=== PATIENT | female | born 1995 ===

== ENCOUNTER 2021-01-18 10:04 | Outpatient (REF) | payer BC, SELFPAY ==
[2021-01-18 13:06] LABS: Red Cell Distribution Width 15.6 % (11.0-16.0)
[2021-01-18 13:08] LABS: Hematocrit 36.1 % (37-47); Hemoglobin 10.8 g/dl (12.0-16.0); Mean Corpuscular HGB Conc 29.9 g/dl (31.0-35.0); Mean Corpuscular Hemoglobin 23.7 pg (27.0-33.0); Mean Corpuscular Volume 79.3 fL (80-98); PLT CLUMP 1; Red Blood Count 4.55 X10*6/uL (4.20-5.50)
[2021-01-18 13:24] LABS: PLT ABN DIST 1
[2021-01-18 13:36] LABS: HCG Quantitative < 2 mIU/mL; Thyroid Stimulating Hormone 2.44 uIU/mL (0.32-4.0)
[2021-01-18 13:43] LABS: White Blood Count 5.8 X10*3/uL (4.8-10.8)
[2021-01-19 02:42] LABS: CT PCR NOT DETECTED (Not Detect.); NG PCR NOT DETECTED (Not Detect.)
[2021-01-19 08:40] LABS: BV Int Neg Control Negative (Negative); BV Int Pos Control Positive (Positive)
[2021-01-21 19:05] LABS: Prolactin 9.9 ng/mL
[2021-01-21 19:46] LABS: DHEA Sulfate 369 mcg/dL (18-391)
[2021-01-26 14:01] LABS: Testosterone, Free 7.3 pg/mL (0.1-6.4); Testosterone, Total 33 ng/dL (2-45)
== END 2021-01-18 10:05 | disposition home or self-care (01) ==
LOC: HO.LAB 10:04
PROVIDERS: PCP Physician Assistant; Visit Provider Advanced Practice Midwife
DX: Z01.411 Encounter for gynecological examination (general) (routine) with abnormal findings (principal); Z11.3 Encounter for screening for infections with a predominantly sexual mode of transmission; N92.6 Irregular menstruation, unspecified; Z20.2 Contact with and (suspected) exposure to infections with a predominantly sexual mode of transmission; R23.4 Changes in skin texture
CPT/HCPCS: 36415; 82627; 83498; 84146; 84402; 84403; 84443; 84702; 85027; 87480; 87491; 87510; 87591; 87660; 88142

== ENCOUNTER 2021-02-08 11:28 | Outpatient (REF) | payer BC, OTHER, SELFPAY ==
--- NOTE | ~2021-02-08 | US_ITS ---
EXAMINATION:US pelvic and transvaginal CLINICAL INFORMATION: Reason for Exam irregular menses COMPARISON: No priors available. LMP: 12/26/2020 FINDINGS: UTERUS: The uterus is anteverted. Size: 7.9 x 2.6 x 3.1 cm. Uterine mass: There is no uterine mass. Cervix: Grossly unremarkable. Endometrium: No ultrasound evidence of endometrial lesion. endometrial thickness measures 1.1 cm ADNEXA: Normal Right ovary: Normal in size. Exophytic cyst measures 1.5 x 1.3 x 1.4 cm probably a follicle. Left ovary: Normal in size. Doppler exam: Normal Doppler flow identified in both ovaries. FREE FLUID: Trace amount of free fluid. OTHER FINDINGS: None US/US pelvic and transvaginal IMPRESSION: 1. Physiologically hypertrophic endometrium 1.1 cm. Cystic structure right ovary probably dominant follicle 1.5 cm. Ultrasound otherwise normal.
== END 2021-02-08 11:29 | disposition home or self-care (01) ==
LOC: HO.US 11:28
PROVIDERS: Visit Provider Advanced Practice Midwife
DX: R23.4 Changes in skin texture (principal); Z20.2 Contact with and (suspected) exposure to infections with a predominantly sexual mode of transmission
CPT/HCPCS: 76830; 76856

== ENCOUNTER → 2021-02-14 11:47 | Outpatient (BNVA) | payer BC, SELFPAY | PROVIDERS: Visit Provider Advanced Practice Midwife ==

== ENCOUNTER → 2021-06-07 15:46 | Outpatient (BNVA) | payer BC, SELFPAY | PROVIDERS: Visit Provider Advanced Practice Midwife ==

== ENCOUNTER 2022-02-08 10:19 | Outpatient (REF) | payer BC, SELFPAY ==
[2022-02-08 13:51] LABS: Hematocrit 38.6 % (37.0-47.0); Hemoglobin 12.1 g/dl (12.0-16.0); Mean Corpuscular HGB Conc 31.3 g/dl (31.0-35.0); Mean Corpuscular Hemoglobin 25.1 pg (27.0-33.0); Mean Corpuscular Volume 79.9 fL (80.0-98.0); Red Blood Count 4.83 X10*6/uL (4.20-5.50); Red Cell Distribution Width 14.6 % (11.0-16.0)
[2022-02-08 14:12] LABS: Platelet Count 149 X10*3/uL (160-400)
[2022-02-08 14:18] LABS: Alanine Aminotransferase 242 U/L (0-31); Albumin Level 4.4 g/dL (3.5-5.0); Alkaline Phosphatase 111 U/L (39-117); Anion Gap 13 (12-20); Aspartate Amino Transferase 105 U/L (5-31); Bilirubin Total 0.5 mg/dL (0.0-1.0); Blood Urea Nitrogen 13 mg/dL (9-16); Calcium 9.7 mg/dL (8.4-10.2); Carbon Dioxide 26 mmol/L (22-29); Chloride 102 mmol/L (96-108); Cholesterol 159 mg/dL; Estimated Glomerular Filt Rate > 60; Glucose Fasting 105 mg/dL (60-99); HDL Cholesterol 38 mg/dL; LDL Cholesterol Calculated 107 mg/dl; Potassium 4.1 mmol/L (3.3-5.1); Sodium 137 mmol/L (135-145); Triglycerides 74 mg/dL
[2022-02-08 14:37] LABS: TSH reflex Free T4 1.25 uIU/mL (0.32-4.0)
== END 2022-02-08 10:20 | disposition home or self-care (01) ==
LOC: HO.WFDLDS 10:19
PROVIDERS: Visit Provider Hospitalist
DX: Z00.00 Encounter for general adult medical examination without abnormal findings (principal); D64.9 Anemia, unspecified; E66.9 Obesity, unspecified
CPT/HCPCS: 36415; 80053; 80061; 84443; 85027

== ENCOUNTER 2022-02-16 13:15 | Outpatient (REF) | payer BC, MEDICAID, SELFPAY ==
--- NOTE | ~2022-02-16 | US_ITS ---
EXAMINATION: US DIAGNOSTIC ULTRASOUND BREAST, LEFT CLINICAL INFORMATION: 26-year-old with palpable mass upper inner quadrant left breast for approximately 3 months. No prior breast imaging. TC score 18.8%. COMPARISON: None. TECHNIQUE: Ultrasound left breast is targeted to the upper inner quadrant. Patient is able to point to area of concern at time of imaging. Grayscale imaging and color Doppler are performed without and with harmonics. FINDINGS: There is a macrolobulated heterogeneous mass at site of palpable concern 10:00 position 5 cm from nipple measuring 2.8 x 1.8 x 2.2 cm. Statistically, the lesion is likely a fibroadenoma. Ultrasound guided biopsies recommended for confirmation. Results are discussed with the patient at time of visit. Results and recommendation called to PCP office biomedical scientist (Leonard) on 02/16/2022. US/US breast LT limited IMPRESSION: -2.8 cm solid mass upper inner left breast corresponding to palpable concern, likely fibroadenoma. ASSESSMENT: BI-RADS 4: Suspicious (subcategory 4A: Low suspicion for malignancy) RECOMMENDATION: Ultrasound-guided core biopsy left breast mass. This patient's information was entered into a reminder system with a target due date for their next mammogram.
== END 2022-02-16 13:16 | disposition home or self-care (01) ==
LOC: HO.MAMMO 13:15
PROVIDERS: PCP Hospitalist; Visit Provider Hospitalist
DX: N63.20 Unspecified lump in the left breast, unspecified quadrant (principal); Z80.3 Family history of malignant neoplasm of breast
CPT/HCPCS: 76642

== ENCOUNTER 2022-02-22 09:05 | Outpatient (REF) | payer BC, MEDICAID, SELFPAY ==
--- NOTE | ~2022-02-22 | US_ITS ---
PROCEDURE: US GUIDED BREAST BIOPSY, LEFT CLINICAL INFORMATION: Heterogeneous hypoechoic mass 10:00 position left breast 5 cm from the nipple. COMPARISON: February 16, 2022 PROCEDURAL DETAILS: The details of the procedure, as well as the risks, benefits, and alternatives to the procedure were explained to the patient in detail and all of her questions were answered, after which written informed consent was obtained. Site and side were confirmed. Prior to the procedure, sonography revealed somewhat lobular circumscribed hypoechoic heterogeneous left breast mass. A time-out was performed, the lesion intended for biopsy was targeted, and the skin of the left breast was then prepped and draped in the usual sterile fashion. Using sonographic guidance, sterile technique, and 1% lidocaine without epinephrine for local anesthesia, multiple automated core biopsies were obtained through the targeted area with a 14G spring loaded Achieve core biopsy device. There was real-time confirmation of appropriate needle passage. Sampling was documented. At the completion of tissue sampling, a single open coil-shaped metallic clip was deposited at the biopsy site. There was no evidence of immediate complication. SPECIMEN: An appropriate sample was obtained. The patient tolerated the procedure well and, after assuring adequate hemostasis, was discharged in good condition after reviewing postbiopsy breast care instructions. Final pathology results are pending. US/US breast ndl core biopsy LT IMPRESSION: 1. No immediate complication from ultrasound-guided percutaneous biopsy left breast. 2. Ultrasound was used to localize and guide marker clip placement. 3. Final pathology results are pending. A separate report with final recommendations will be issued once these results are made available.
[2022-02-22] MEDS: Lidocaine HCl 1 % 20 ML VIAL 10 ML SUBCUT (10:15)
== END 2022-02-22 09:06 | disposition home or self-care (01) ==
LOC: HO.MAMMO 09:05
PROVIDERS: PCP Hospitalist; Visit Provider Surgery
DX: N63.22 Unspecified lump in the left breast, upper inner quadrant (principal)
CPT/HCPCS: 19083; 88305; A4648

== ENCOUNTER 2023-06-27 10:04 | Outpatient (AMB) | payer BC, MEDICAID, SELFPAY ==
[2023-06-27 10:10] VITALS: BP 108/66; PULSE 81; RESP 13; TEMP 36.4; O2SAT 98; BMI 38.0
--- NOTE | 2023-06-27 10:10 | MHC.PC.OV ---
Vital Signs 06/27/23 10:10 Height 5 ft 4 in Weight 221 lb 8 oz BMI 38.0 BP 108/66 Blood Pressure Location Rt brachial Position Sitting Respiration 13 Pulse 81 Pulse Source Pulse Oximeter Temp 97.6 F Temp Source Temporal Artery Scan Pulse Oximetry (%) 98 Oxygen Delivery Method Room Air Intake Visit Reasons: PARAM discuss medical concerns [facility] Intake Note: Patient states that she would like a referral to merchandise planning manager due to random reactions to food. Electronic Typesetting Machine Operator Required: No Accompanied by: Self / Same As Patient Allergies carrot Adverse Reaction (Intermediate, Verified 06/27/23 10:23) Itching peaches Allergy (Unknown, Uncoded 06/27/23 10:23) Unknown Jackfruit Adverse Reaction (Intermediate, Uncoded 06/27/23 10:23) Anaphylaxis Sugarsnap Peas Adverse Reaction (Intermediate, Uncoded 06/27/23 10:23) Itching Medication List - Last Reconciled 06/27/23 by lAma Dalton CNP cyanocobalamin (vitamin B-12) 1,000 mcg PO DAILY lysine 975 mg PO DAILY magnesium glycinate 100 mg PO DAILY Tobacco use date assessed: 06/27/23 Dental Screening Dental Screen Date: 06/27/23 Did you have a dental visit in the last 12 months?: Yes Did you have a dental problem in the last 6 months where you did not have access to dental care?: No Was dental information given to patient?: Patient has dentist HPI HPI Comments History of Present Illness Details 28-year-old female presents for transfer of care She has history of obesity, PCOS, left breast fibroadenoma Her former PCP is [facility] was no longer with the practice Her last office visit and routine blood work was over a year ago She reports intermittent allergic reactions such as throat swelling, tongue numbness, and itching on her neck. She believes she may have food or environmental allergy She notes that her left breast mass was not removed. She requests to have the mass revaluated because her believes the mass is growing. However, the patient notes that she does not think the mass is growing. She denies pain, tenderness, discharge, swelling, or erythema She also reports non itchy ringworm-like rash that comes and goes on different areas of her trunk and currently to left suprapubic region. She has been using OTC ringworm ointment with delayed improvement She notes intermittent pain to her right 4 digit since early May,. She notes that the pain started after a fall while hiking. She slipped on a rock, and fell, landing on her hands. She was evaluated at an urgent and was informed the pain will subside with time. She reports pain only with bending the finger and unable to fully make a close fist She also notes she has not been able to lose weight. She states she has not been making healthy dietary changes. She has been exercising at the gym on and off 2 times weekly and has been consistent the past 2-3 weeks [facility] Medical History (Updated 06/27/23 @ 11:08 by Alma Dalton CNP) Obesity PCOS (polycystic ovarian syndrome) Migraine Lipoma of back Surgical History (Updated 06/27/23 @ 10:24 by Linda Olivas MA) No pertinent past surgical history Family History Maternal Aunt History of breast cancer Social History Housing: Apartment Alcohol intake: current Alcohol intake frequency: a few times a month Patient Tobacco Use Status: Never used Tobacco e-Cigarette/Vaping Use: Never Used Second Hand Smoke Exposure: No service: No Current occupational status: employed 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 1. Little interest or pleasure in doing things: several days 2. Feeling down, depressed, or hopeless: several days 3. Trouble falling or staying asleep, or sleeping too much: several days 4. Feeling tired or having little energy: several days 5. Poor appetite or overeating: nearly every day 6. Feeling bad about yourself - or that you are a failure or have let yourself or your family down: nearly every day 7. Trouble concentrating on things, such as reading the newspaper or watching television: more than half the days 8. Moving or speaking so slowly that other people could have noticed. Or the opposite - being so fidgety or restless that you have been moving around a lot more than usual: not at all 9. Thoughts that you would be better off or of hurting yourself in some way: not at all Total score: 12 Depression Screening Interpretation: Positive Depression Screening Done: Yes 13419 - PHQ-9 Billing: Yes Source: Developed by Drs. Anthony Sylvester, Megan Marie, Emmanuel Nash and colleagues, with an educational oneida from [employer]. Thrive Questionnaire Date Thrive assessed: 06/27/23 I am a: Patient What is your living situation today?: I have a steady place to live Within the past 12 months, did the food you bought not last and you didn't have the money to get more?: Never true Within the past 12 months, did you worry whether your food would run out before you got money to buy more?: Never true Do you have trouble paying for medicines?: No Do you have trouble getting transportation to medical appointments?: No Do you have trouble paying your heating and electricity bill?: Yes Do you have trouble taking care of your child, family member or friend?: No Do you have trouble with day-to-day activities such as bathing, preparing meals, shopping, managing finances, etc.?: No Are you currently unemployed and looking for a job?: No Are you interested in more education?: No Please select the resources that you would like help with: None Currently or been in a relationship where the following occur: no concerns reported AUDIT C Alcohol Use Questionnaire (AUDIT-C) 1. How often do you have a drink containing alcohol?: 2-4 times a month 2. How many drinks containing alcohol do you have on a typical day when you are drinking?: 1 or 2 3. How often do you have six or more drinks on one occasion?: Never Total Score: 2 SARAI-7 AMB Questionnaire SARAI-7 Date SARAI - 7 assessed: 06/27/23 Feeling nervous, anxious, or on edge: 3 = Nearly every day Not being able to stop or control worryin = Several days Worrying too much about different things: 3 = Nearly every day Trouble relaxin = Nearly every day Being so restless that it is hard to sit still: 0 = Not at all Becoming easily annoyed or irritable: 0 = Not at all Feeling afraid as if something awful might happen: 1 = Several days Total SARAI-7 score (0-4 normal; 5-9 mild; 10-14 moderate; 15-21 severe): 11 Source: Developed by Drs. Anthony Sylvester, Megan Marie, Emmanuel Nash and colleagues, with an educational oneida from [employer]. SARAI-7 Assessment Billing SARAI-7 Assessment Tool: SARAI-7 Assessment 75426 Review of Systems Const Details: Const Denies chills, Denies fatigue, Denies fever(s), Denies headache(s) and Denies weakness ENT Denies dizziness and Denies headache(s) Card Denies chest pain, Denies lightheadedness, Denies dyspnea and Denies other (Palpitations) Resp Denies cough, Denies dyspnea, Denies wheezing and Denies other ( shortness of breath) GI Denies abdominal pain, Denies melena, Denies hematochezia, Denies change in bowel habits, Denies dyspepsia and Denies nausea Denies hematuria and Denies dysuria Musc Denies abnormal gait, Denies myalgias, Denies arthralgias, Denies numbness and Denies tingling Skin/Breast Denies rash, Denies unusual bruising and Denies wounds Neuro Denies abnormal gait, Denies dizziness, Denies headache(s), Denies memory loss, Denies numbness, Denies Sensory deficit (Neuro), Denies tingling and Denies weakness Psych Denies anxiety, Denies depression, Denies memory loss Endo Denies cold intolerance, Denies fatigue, Denies heat intolerance, Denies polydipsia and Denies polyuria Aller/Immun Denies wheezing Physical exam (Primary Care) Tobacco/Smoking Status: Tobacco use Status Tobacco use date assessed 02/08/22 02/08/22 10:03 Patient Tobacco Use Status Never used Tobacco 02/08/22 09:56 e-Cigarette/Vaping Use Never Used 02/08/22 10:03 Depression Screening Interpretation: Positive Currently or been in a relationship where the following occur: no concerns reported Const Other: General: no acute distress and well developed Nutritional Appearance: well nourished Orientation/consciousness: patient oriented x3 HENMT Head: Yes normocephalic and Yes atraumatic Eyes General: appearance normal, both eyes and all related structures Pupils: Equal, round and reactive pupils present EOM: EOMs intact bilaterally Resp Effort & Inspection: normal respiratory effort Auscultation: clear to auscultation bilaterally Cardio Rate: regular rate Rhythm: regular rhythm Heart sounds: S1 normal heart sound present, S2 normal heart sound present, no gallops, no murmurs and no rubs GI Palpation (GI): No Abdominal aortic bruit present, Soft to palpation, nontender, No hepatosplenomegaly present and No Rebound tenderness present Auscultation: normal bowel sounds General: Yes no CVA tenderness Back/Spine/Pelvis Back: no CVA tenderness Cervical Spine: cervical ROM normal and No Cervical spine tenderness Thoracic/Lumbar Spine: thoraco-lumbar ROM normal, No pain with thoraco-lumbar ROM, No thoracic spinal tenderness and No lumbar spinal tenderness Extrem General: Yes normal to inspection, No edema and No calf tenderness Pain with palpation of the proximal and middle phalanx of the right 4th digit. No erythema, edema, or overt trauma or injury Skin General: warm and dry. Normal skin color. Normal skin turgor Lesions: no lesions Rashes: Small, round rash with clear core noted to the left suprapubic region, consistent with ringworm Trauma: no lacerations or abrasions Wounds: no wounds Nails: normal Neuro General: patient oriented x3, gait normal and no focal neuro deficit Cranial nerves: Yes Equal, round and reactive pupils present Cognition (Neuro): normal cognition Gait exam (Neuro): Normal gait present Sensory Exam: No Sensory deficit (Neuro) Psych Appearance: grossly normal Affect: normal affect Attitude: cooperative Thought process: Normal thought process present Assessment and Plan Assessment & Plan (1) Left breast lump: Code(s): N63.20 - Unspecified lump in the left breast, unspecified quadrant Plan: She requests revaluation of left breast mass. She notes the mass was not removed and her believes the mass is growing although the patient does not think so No pain or tenderness Referred to general surgery Follow-up with symptoms or concerns Verbalized understanding and agreed with treatment plan (2) Obesity: Code(s): E66.9 - Obesity, unspecified Plan: She notes that she has not been able to lose weight. She has been exercising but has not been making healthy dietary choices Healthy diet and routine exercise encouraged Referred to weight management Follow-up with symptoms or concerns Verbalized understanding and agreed with treatment (3) Food allergy: Code(s): Z91.018 - Allergy to other foods Plan: She reports intermittent allergic reactions such as throat swelling, tongue numbness, and itching on her neck No current symptoms Referred to an merchandise planning manager Follow-up with symptoms or concerns Verbalized understanding and agreed with treatment plan (4) Environmental allergies: Code(s): Z91.09 - Other allergy status, other than to drugs and biological substances Plan: As above (5) Pain in right finger(s): Code(s): M79.644 - Pain in right finger(s) Plan: Reports intermittent pain to the right 4th digit from a fall a month ago Pain with palpation of the proximal and middle phalanx of the right 4th digit. No erythema, edema, or overt trauma or injury Likely musculoskeletal pain Take Tylenol or ibuprofen as needed Warm/cold compresses encouraged Follow-up with worsening or new symptoms Verbalized understanding and agreed with treatment plan (6) Ringworm: Code(s): B35.9 - Dermatophytosis, unspecified Plan: Reports non itchy ringworm-like rash that comes and goes on different areas of her trunk and currently to left suprapubic region Small, round rash with clear core noted to the left suprapubic region, consistent with ringworm Advised to keep her skin clean and dry Apply ketoconazole cream as prescribed Follow-up with worsening or new signs and symptoms Verbalized understanding and agreed with treatment plan (7) Laboratory tests ordered as part of a complete physical exam (CPE): Code(s): Z00.00 - Encounter for general adult medical examination without abnormal findings Plan: Fasting labs ordered as part of a complete physical exam. Advised to fast for at least 10 hours before getting labs drawn. May drink water Verbalized understanding and agreed with treatment plan. Orders: Orders Complete Blood Count Auto Diff Today Z00.00 - Encounter for general adult medical examination without abnormal findings Comprehensive [place]. Panel Fast Today Z00.00 - Encounter for general adult medical examination without abnormal findings Lipid Panel Today Z00.00 - Encounter for general adult medical examination without abnormal findings TSH reflex Free T4 Today Z00.00 - Encounter for general adult medical examination without abnormal findings UA CC w/rflx Micro + Cult Today Z00.00 - Encounter for general adult medical examination without abnormal findings Referrals Medical Weight Management Referral E66.9 - Obesity, unspecified General Surgery Referral N63.20 - Unspecified lump in the left breast, unspecified quadrant Allergy & Immunology Referral Z91.018 - Allergy to other foods, Z91.09 - Other allergy status, other than to drugs and biological substances Medications: New ketoconazole 2% 1 appl topical BID 30 grams 2RF Coding Level of Care Code Est Pt Level 4 (30790) Diagnoses Left breast lump N63.20 Obesity E66.9 Food allergy Z91.018 Environmental allergies Z91.09 Pain in right finger(s) M79.644 Ringworm B35.9 Laboratory tests ordered as part of a complete physical exam (CPE) Z00.00 Additional Codes SARAI-7 Assessment Billing - SARAI-7 Assessment Tool: SARAI-7 Assessment 21390 ([id number])
== END 2023-06-27 11:03 | disposition home or self-care (01) ==
PROVIDERS: PCP Hospitalist; Visit Provider Nurse Practitioner Family
DX: M79.644 Pain in right finger(s) (principal); E66.9 Obesity, unspecified; Z68.38 Body mass index [BMI] 38.0-38.9, adult; B35.9 Dermatophytosis, unspecified; N60.22 Fibroadenosis of left breast; Z91.018 Allergy to other foods; Z91.09 Other allergy status, other than to drugs and biological substances
CPT/HCPCS: 99214

== ENCOUNTER 2023-11-19 13:08 | Outpatient (AMB) | payer OTHER, SELFPAY ==
--- NOTE | 2023-11-19 13:09 | MHC.OFFVIS ---
Vital Signs 11/19/23 13:16 Height 5 ft 4 in Weight 214 lb BMI 36.7 BP 116/65 Blood Pressure Location Rt brachial Position Sitting Pulse 84 Intake Visit Reasons: left breast lump Intake Note: This patient presents for a follow-up assessment for left breast lump. Patient c/o; reports lump has increased in size, reports occasional pain, reports no discharge from nipple. Washer Carcass Required: No Business Account Executive: Business Account Executive offered & declined Accompanied by: Self / Same As Patient Allergies carrot Adverse Reaction (Intermediate, Verified 11/19/23 13:18) Itching peaches Allergy (Unknown, Uncoded 11/19/23 13:18) Unknown Jackfruit Adverse Reaction (Intermediate, Uncoded 11/19/23 13:18) Anaphylaxis Sugarsnap Peas Adverse Reaction (Intermediate, Uncoded 11/19/23 13:18) Itching Medication List - Last Reconciled 11/19/23 by Rickey Guidry MD ascorbic acid (vitamin C) 250 mg PO DAILY cyanocobalamin (vitamin B-12) 1,000 mcg PO DAILY ketoconazole 2% 1 appl topical BID lysine 975 mg PO DAILY magnesium glycinate 100 mg PO DAILY multivitamin 1 tab PO DAILY HPI HPI left breast lump: Details: 28-year-old female referred for a left breast mass. She has had this for more than 2 years now. She feels that this has been increasing in size. He says that this seems to be causing some discomfort now. Review of her records show that she had an ultrasound in 2021 on the left breast showing a mass as well. Biopsy of this with ultrasound showed a fibroadenoma. Her menarche was at the age of 16 . She has never been . She describes 2 maternal aunts who had breast cancer in their late 40s. 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 Current occupational exposures/hazards: No Sexual orientation: Lesbian/Trin[place]/Homosexual Cognitive needs: No Hearing needs: No Vision needs: No Female Reproductive History Menstrual Age of Menarche: 14 Review of Systems Const Denies chills and Denies fever(s) Card Denies chest pain, Denies dyspnea and Denies dyspnea on exertion Resp Denies cough, Denies dyspnea and Denies dyspnea on exertion GI Denies hematochezia and Denies change in bowel habits Denies hematuria Musc Denies back pain and Denies limited range of motion Neuro Denies focal weakness and Denies convulsions Psych Denies depression and Denies mood swings Physical Exam Vital Signs: Last Vital Signs Pulse 84 11/19/23 13:16 BP 116/65 11/19/23 13:16 BMI result Body Mass Index 36.7 Const General: comfortable and no acute distress Orientation/consciousness: patient oriented x3 Neck Neck: Yes no lymphadenopathy Chest Other: Left breast with a palpable mass at the 10 o'clock position, about 2 cm in diameter, fairly mobile; no axillary lymphadenopathy on both breasts. No palpable mass on the right breast. Resp Auscultation: clear to auscultation bilaterally Cardio Rhythm: regular rhythm GI Palpation (GI): Soft to palpation, nontender and no guarding Neuro General: patient oriented x3 Assessment & Plan Assessment & Plan (1) Fibroadenoma of breast: Code(s): D24.9 - Benign neoplasm of unspecified breast Category: Medical Plan: She has left breast mass from before and biopsy of this done in 2021 showed a fibroadenoma. She feels that this has increased in size. She thinks that this has been causing her some discomfort. She is considering having this excised. I explained the technique of excision of the fibroadenoma of the left breast under anesthesia. I would explained the risks including but not limited to bleeding, infections, hematoma, poor healing, postop pain, as well as the benefits and alternatives. She understands what to expect postoperatively She says she will think about it and talk to her partner and will let me know. She will call the office when she is ready to schedule. Coding Level of Care Code New Pt Level 3 (54447) Diagnoses Fibroadenoma of breast D24.9
[2023-11-19 13:16] VITALS: BP 116/65; PULSE 84; BMI 36.7
== END 2023-11-19 13:43 | disposition home or self-care (01) ==
PROVIDERS: Visit Provider Surgery
DX: D24.2 Benign neoplasm of left breast (principal)
CPT/HCPCS: 99213

== ENCOUNTER → 2023-11-19 13:08 | Outpatient (BNVA) | payer OTHER, SELFPAY | PROVIDERS: Visit Provider Surgery ==

== ENCOUNTER 2024-05-22 12:56 | Outpatient (REF) | payer OTHER, SELFPAY ==
[2024-05-22 14:44] LABS: Hematocrit 36.4 % (37.0-47.0); Hemoglobin 11.6 g/dl (12.0-16.0); Mean Corpuscular HGB Conc 31.9 g/dl (31.0-35.0); Mean Corpuscular Hemoglobin 24.7 pg (27.0-33.0); Mean Corpuscular Volume 77.4 fL (80.0-98.0); Mean Platelet Volume 12.3 fL (9.4-12.3); Platelet Count 162 X10*3/uL (160-400); Red Cell Distribution Width 15.2 % (11.0-16.0); White Blood Count 7.6 X10*3/uL (4.8-10.8)
[2024-05-22 15:22] LABS: Thyroid Stimulating Hormone 1.17 uIU/mL (0.32-4.0)
== END 2024-05-22 12:57 | disposition home or self-care (01) ==
LOC: HO.LAB 12:56
PROVIDERS: PCP Nurse Practitioner Family; Visit Provider Advanced Practice Midwife
DX: N92.1 Excessive and frequent menstruation with irregular cycle (principal); N92.0 Excessive and frequent menstruation with regular cycle
CPT/HCPCS: 36415; 84443; 85027

== ENCOUNTER 2024-05-22 12:56 | Outpatient (AMB) | payer OTHER, SELFPAY ==
--- NOTE | 2024-05-22 12:59 | A.OFFVIS_ITS ---
Vital Signs 05/22/24 13:00 05/22/24 14:01 Height 5 ft 4 in Weight 215 lb 8 oz BMI 37.0 37.0 BP 124/72 Blood Pressure Location Lt brachial Position Sitting Intake Visit Reasons: painful menses Intake Note: Bleeding heavy today, declines exam Warp Hauler Required: No Online Marketing Strategist: Online Marketing Strategist Present Allergies peach Allergy (Unknown, Verified 05/22/24 13:04) Unknown carrot Adverse Reaction (Intermediate, Verified 05/22/24 13:04) Itching Jackfruit Adverse Reaction (Intermediate, Uncoded 05/22/24 13:04) Anaphylaxis Sugarsnap Peas Adverse Reaction (Intermediate, Uncoded 05/22/24 13:04) Itching Medication List - Last Reconciled 05/22/24 by Silvia Waters LPN lysine 975 mg PO DAILY Is last menstrual period known: Yes Last menstrual period: 05/21/24 Post menopausal: No Patient : No Do you need a note to return to daycare/school/sports/work: No HPI Comments Details: Patient is here today with concerns that her menstrual cycles have becoming heavier and painful since November. Cycles monthly off several days, not using an alex or tracking currently. History of PCOS. Tried metformin 1-2 years ago and felt much better with the its use. 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 Declines a physical exam today due to her bleeding, UPT is negative. [facility] Medical History Fibroadenoma of breast Obesity PCOS (polycystic ovarian syndrome) Migraine Lipoma of back Surgical History No pertinent past surgical history Family History (Updated 05/22/24 @ 13:08 by Silvia Waters LPN) Maternal Aunt History of breast cancer Mother Liver disease Brother NAFLD (nonalcoholic fatty liver disease) Social History Housing: Apartment Alcohol intake: current Alcohol intake frequency: a few times a month Patient Tobacco Use Status: Never used Tobacco e-Cigarette/Vaping Use: Never Used Second Hand Smoke Exposure: No service: No Current occupational status: employed 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 Current occupational exposures/hazards: No Sexual orientation: Lesbian/Trinidad/Homosexual Cognitive needs: No Hearing needs: No Vision needs: No Female Reproductive History Menstrual Age of Menarche: 14 Duration of menses: 3-5 days Date of last menstrual period: 05/21/24 control method: none Total pregnancies: 0 Date of last pap smear: 01/19/24 History of abnormal pap smear: No History of STI: No Review of Systems Const All systems reviewed & are unremarkable except as noted in HPI and below Endo Reports no additional complaints Physical Exam Vital Signs: Last Vital Signs BP 124/72 05/22/24 13:00 BMI result Body Mass Index 37.0 Const General: cooperative, healthy appearing and no acute distress Psych Appearance: well kempt Attitude: cooperative Thought process: Normal thought process present Assessment & Plan Assessment & Plan (1) Heavy menstrual bleeding: Code(s): N92.0 - Excessive and frequent menstruation with regular cycle Category: Medical Qualifiers: Menorrhagia type: with regular cycle Qualified Code(s): N92.0 - Excessive and frequent menstruation with regular cycle Plan Discussed: Workup for heavy menstrual bleeding to include blood work TSH and CBC, pelvic ultrasound in [facility]. Preprocedure anticipatory guidance reviewed, advised to take Tylenol or ibuprofen with food 1 hour before appointment. Role of weight loss in hormone balance. Monitor menstrual cycles, report any unscheduled bleeding, bleeding episodes <24 days apart or heavy/prolonged menstrual bleeding. Call the office for a follow up for any concerns. This note is constructed using voice recognition software. While every effort has been made to ensure accuracy, special warfare operator errors may have been included. Orders: Orders US pelvic and transvaginal Today N92.0 - Excessive and frequent menstruation with regular cycle Thyroid Stimulating Hormone Today N92.1 - Excessive and frequent menstruation with irregular cycle Complete Blood Count no Diff Today N92.0 - Excessive and frequent menstruation with regular cycle Coding Level of Care Code Est Pt Level 3 (80051) Diagnoses Menorrhagia with regular cycle N92.0 Menorrhagia type: with regular cycle
[2024-05-22 13:00] VITALS: BP 124/72; BMI 37.0
--- NOTE | 2024-05-22 14:00 | MHC.OFFVIS ---
Vital Signs 05/22/24 13:00 Height 5 ft 4 in Weight 215 lb 8 oz BMI 37.0 BP 124/72 Blood Pressure Location Lt brachial Position Sitting Intake Visit Reasons: painful menses Allergies peach Allergy (Unknown, Verified 05/22/24 13:04) Unknown carrot Adverse Reaction (Intermediate, Verified 05/22/24 13:04) Itching Jackfruit Adverse Reaction (Intermediate, Uncoded 05/22/24 13:04) Anaphylaxis Sugarsnap Peas Adverse Reaction (Intermediate, Uncoded 05/22/24 13:04) Itching Medication List - Last Reconciled 05/22/24 by Silvia Waters LPN lysine 975 mg PO DAILY PFSH Medical History (Updated 05/22/24 @ 13:32 by Luzma Yañez CNM) Heavy menstrual bleeding Fibroadenoma of breast Obesity PCOS (polycystic ovarian syndrome) Migraine Lipoma of back Surgical History No pertinent past surgical history Family History (Updated 05/22/24 @ 13:08 by Silvia Waters LPN) Maternal Aunt History of breast cancer Mother Liver disease Brother NAFLD (nonalcoholic fatty liver disease) Social History Housing: Apartment Alcohol intake: current Alcohol intake frequency: a few times a month Patient Tobacco Use Status: Never used Tobacco e-Cigarette/Vaping Use: Never Used Second Hand Smoke Exposure: No service: No Current occupational status: employed 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 Current occupational exposures/hazards: No Sexual orientation: Lesbian/Trinidad/Homosexual Cognitive needs: No Hearing needs: No Vision needs: No Female Reproductive History Menstrual Age of Menarche: 14 Duration of menses: 3-5 days control method: none Physical Exam Vital Signs: Last Vital Signs BP 124/72 05/22/24 13:00 BMI result Body Mass Index 37.0 Quality Reporting (2019) Adult ([facility] 138/08/23/68) Body Mass Index: 37.0 Assessment & Plan Assessment & Plan Orders: Orders US pelvic and transvaginal Today N92.0 - Excessive and frequent menstruation with regular cycle Thyroid Stimulating Hormone Today N92.1 - Excessive and frequent menstruation with irregular cycle Complete Blood Count no Diff Today N92.0 - Excessive and frequent menstruation with regular cycle Coding
== END 2024-05-22 14:11 | disposition home or self-care (01) ==
PROVIDERS: Visit Provider Advanced Practice Midwife
DX: N92.0 Excessive and frequent menstruation with regular cycle (principal)
CPT/HCPCS: 99213

== ENCOUNTER 2024-06-03 13:11 | Outpatient (REF) | payer OTHER, SELFPAY | END 2024-06-03 13:12 | disposition home or self-care (01) | LOC: HO.US 13:11 | PROVIDERS: Visit Provider Advanced Practice Midwife | DX: N92.0 Excessive and frequent menstruation with regular cycle (principal) | CPT/HCPCS: 76830; 76856 ==

== ENCOUNTER 2024-06-03 14:37 | Outpatient (AMB) | payer OTHER, SELFPAY ==
--- NOTE | 2024-06-03 14:52 | MHC.PC.OV ---
Vital Signs 06/03/24 14:55 Height 5 ft 4 in Weight 217 lb BMI 37.2 BP 117/57 L Blood Pressure Location Rt brachial Position Sitting Respiration 16 Pulse 73 Pulse Source Pulse Oximeter Temp 98.8 F Temp Source Temporal Artery Scan Pulse Oximetry (%) 100 Oxygen Delivery Method Room Air Intake Visit Reasons: Allergies Intake Note: patient here c/o allergies Crossing Guard Required: No Is last menstrual period known: Yes Last menstrual period: 05/22/24 Post menopausal: No Patient : No Allergies peach Allergy (Unknown, Verified 06/03/24 15:33) Unknown carrot Adverse Reaction (Intermediate, Verified 06/03/24 15:33) Itching Jackfruit Adverse Reaction (Intermediate, Uncoded 06/03/24 15:33) Anaphylaxis Sugarsnap Peas Adverse Reaction (Intermediate, Uncoded 06/03/24 15:33) Itching Medication List - Last Reconciled 06/03/24 by Alma Dalton CNP lysine 975 mg PO DAILY Tobacco use date assessed: 06/03/24 Dental Screening Dental Screen Date: 06/03/24 Did you have a dental visit in the last 12 months?: No Did you have a dental problem in the last 6 months where you did not have access to dental care?: No Was dental information given to patient?: Patient has dentist HPI HPI Comments History of Present Illness Details The patient is a 29-year-old female presenting with concerns related to allergies and anxiety. She experiences severe allergic reactions, particularly during springtime, and reports morning episodes of sneezing which subside throughout the day. She has tried various [id number] allergy medications like Abeba and Zyrtec in the past, but finds she needs to alter treatments yearly as they lose efficacy. She has not been taking any allergy medications recently. Her PCP referred her to an resistor inspector last year but she was not contacted to schedule an appointment with them. The patient also has a history of anxiety that was formally diagnosed. She does not take any medications for this condition and has not yet started therapy, though she is on a waiting list for counseling. She associates her anxiety and moderate depression symptoms with recent life changes, including the passing of her mother due to nonalcoholic fatty liver disease. Additionally, the patient expresses concern about her liver health due to recent familial cases of liver issues. Her liver enzymes were elevated in 2021, but no further details or follow-up were pursued then. [facility] Medical History (Updated 06/03/24 @ 15:48 by Alma Dalton CNP) Heavy menstrual bleeding Fibroadenoma of breast Obesity PCOS (polycystic ovarian syndrome) Migraine Lipoma of back Surgical History No pertinent past surgical history Family History (Updated 05/22/24 @ 13:08 by Silvia Waters LPN) Maternal Aunt History of breast cancer Mother Liver disease Brother NAFLD (nonalcoholic fatty liver disease) Social History Housing: Apartment Alcohol intake: current Alcohol intake frequency: a few times a month Patient Tobacco Use Status: Never used Tobacco e-Cigarette/Vaping Use: Never Used Second Hand Smoke Exposure: No service: No Current occupational status: employed 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 1. Little interest or pleasure in doing things: several days 2. Feeling down, depressed, or hopeless: more than half the days 3. Trouble falling or staying asleep, or sleeping too much: more than half the days 4. Feeling tired or having little energy: more than half the days 5. Poor appetite or overeating: more than half the days 6. Feeling bad about yourself - or that you are a failure or have let yourself or your family down: more than half the days 7. Trouble concentrating on things, such as reading the newspaper or watching television: nearly every day 8. Moving or speaking so slowly that other people could have noticed. Or the opposite - being so fidgety or restless that you have been moving around a lot more than usual: not at all 9. Thoughts that you would be better off or of hurting yourself in some way: not at all Total score: 14 Depression Screening Interpretation: Positive Depression Screening Done: Yes Source: Developed by Drs. Anthony Sylvester, Megan Marie, Emmanuel Nash and colleagues, with an educational oneida from [employer]. Thrive Questionnaire Date Thrive assessed: 06/27/23 I am a: Patient What is your living situation today?: I have a steady place to live Within the past 12 months, did the food you bought not last and you didn't have the money to get more?: Sometimes True Within the past 12 months, did you worry whether your food would run out before you got money to buy more?: Never true Do you have trouble paying for medicines?: No Do you have trouble getting transportation to medical appointments?: No Do you have trouble paying your heating and electricity bill?: Yes Do you have trouble taking care of your child, family member or friend?: No Do you have trouble with day-to-day activities such as bathing, preparing meals, shopping, managing finances, etc.?: No Are you currently unemployed and looking for a job?: No Are you interested in more education?: No Please select the resources that you would like help with: None Currently or been in a relationship where the following occur: No concerns reported THRIVE Score: 2 AUDIT C Alcohol Use Questionnaire (AUDIT-C) 1. How often do you have a drink containing alcohol?: Monthly or less 2. How many drinks containing alcohol do you have on a typical day when you are drinking?: 1 or 2 3. How often do you have six or more drinks on one occasion?: Never Total Score: 1 SARAI-7 AMB Questionnaire SARAI-7 Date SARAI - 7 assessed: 06/27/23 Feeling nervous, anxious, or on edge: 2 = More than half the days Not being able to stop or control worryin = More than half the days Worrying too much about different things: 2 = More than half the days Trouble relaxin = More than half the days Being so restless that it is hard to sit still: 2 = More than half the days Becoming easily annoyed or irritable: 2 = More than half the days Feeling afraid as if something awful might happen: 2 = More than half the days Total SARAI-7 score (0-4 normal; 5-9 mild; 10-14 moderate; 15-21 severe): 14 Source: Developed by Drs. Anthony Sylvester, Megan Marie, Emmanuel Nash and colleagues, with an educational oneida from [employer]. Review of Systems Const Details: Const Denies chills, Denies fatigue, Denies fever(s), Denies headache(s) and Denies weakness ENT Denies dizziness and Denies headache(s) Card Denies chest pain, Denies lightheadedness, Denies dyspnea and Denies other (Palpitations) Resp Denies cough, Denies dyspnea, Denies wheezing and Denies other ( shortness of breath) GI Denies abdominal pain, Denies melena, Denies hematochezia, Denies change in bowel habits, Denies dyspepsia and Denies nausea Denies hematuria and Denies dysuria Musc Denies abnormal gait, Denies myalgias, Denies arthralgias, Denies numbness and Denies tingling Skin/Breast Denies rash, Denies unusual bruising and Denies wounds Neuro Denies abnormal gait, Denies dizziness, Denies headache(s), Denies memory loss, Denies numbness, Denies Sensory deficit (Neuro), Denies tingling and Denies weakness Psych Reports anxiety, Reports depression, Denies memory loss Endo Denies cold intolerance, Denies fatigue, Denies heat intolerance, Denies polydipsia and Denies polyuria Aller/Immun Denies wheezing Physical exam (Primary Care) Vital Signs: Last Vital Signs Temp 98.8 F 06/03/24 14:55 Pulse 73 06/03/24 14:55 Resp 16 06/03/24 14:55 BP 117/57 L 06/03/24 14:55 Pulse Ox 100 06/03/24 14:55 Oxygen Delivery Method Room Air 06/03/24 14:55 BMI result Body Mass Index 37.2 Tobacco/Smoking Status: Tobacco use Status Tobacco use date assessed 06/03/24 06/03/24 14:58 Patient Tobacco Use Status Never used Tobacco 06/03/24 14:58 e-Cigarette/Vaping Use Never Used 06/03/24 14:58 PHQ-9: PHQ-9 Score PHQ-9: Total score 14 06/03/24 14:58 Depression Screening Interpretation: Positive Thrive Assessment: Date of Thrive Assessment Date Thrive assessed 06/27/23 06/03/24 14:58 Currently or been in a relationship where the following occur: No concerns reported Const Other: General: no acute distress and well developed Nutritional Appearance: well nourished Orientation/consciousness: patient oriented x3 [facility] Head: Yes normocephalic and Yes atraumatic Eyes General: appearance normal, both eyes and all related structures Pupils: Equal, round and reactive pupils present EOM: EOMs intact bilaterally Resp Effort & Inspection: normal respiratory effort Auscultation: clear to auscultation bilaterally Cardio Rate: regular rate Rhythm: regular rhythm Heart sounds: S1 normal heart sound present, S2 normal heart sound present, no gallops, no murmurs and no rubs GI Palpation (GI): No Abdominal aortic bruit present, Soft to palpation, nontender, No hepatosplenomegaly present and No Rebound tenderness present Auscultation: normal bowel sounds General: Yes no CVA tenderness Back/Spine/Pelvis Back: no CVA tenderness Cervical Spine: cervical ROM normal and No Cervical spine tenderness Thoracic/Lumbar Spine: thoraco-lumbar ROM normal, No pain with thoraco-lumbar ROM, No thoracic spinal tenderness and No lumbar spinal tenderness Extrem General: Yes normal to inspection, No edema and No calf tenderness Skin General: warm and dry. Normal skin color. Normal skin turgor Lesions: no lesions Rashes: no rashes Trauma: no lacerations or abrasions Wounds: no wounds Nails: normal Neuro General: patient oriented x3, gait normal and no focal neuro deficit Cranial nerves: Yes Equal, round and reactive pupils present Cognition (Neuro): normal cognition Gait exam (Neuro): Normal gait present Sensory Exam: No Sensory deficit (Neuro) Psych Appearance: grossly normal Affect: normal affect Attitude: cooperative Thought process: Normal thought process present Coding Level of Care Code Est Pt Level 4 (27770) Complex EM visit Add On G2211 Diagnoses Allergic rhinitis J30.9 Anxiety and depression F41.9; F32.A Health care maintenance Z00.00 Assessment & Plan Assessment & Plan (1) Allergic rhinitis: Code(s): J30.9 - Allergic rhinitis, unspecified Category: Medical Plan: May take Zyrtec once daily for allergy management. Referral to an resistor inspector will be reinitiated. (2) Anxiety and depression: Code(s): F41.9 - Anxiety disorder, unspecified; F32.A - Depression, unspecified Category: Medical Plan: Advised trial of hydroxyzine as needed, particularly at night, to manage anxiety and aid with sleep if drowsiness is a concern. (3) Health care maintenance: Code(s): Z00.00 - Encounter for general adult medical examination without abnormal findings Category: Medical Plan: Monitor mental health status with focus on bereavement support. Plan I discussed the management plan with the patient in detail. For her allergies, I recommended Zyrtec and expressed the importance of attending an resistor inspector to identify specific allergens. We addressed her anxiety and depression symptoms, noting the impact of her mother's recent passing on her emotional state. I proposed the use of hydroxyzine at night to help both with her anxiety and sleep disturbances. I also stressed the importance of pursuing therapy, as she is already on a waitlist. Regarding her concerns about liver health, I explained that elevated liver enzymes in previous labs warrant a re-evaluation with current lab tests. I assured her that an ultrasound would be considered if abnormalities persist. We agreed to review her health and lab results in a month, ensuring all necessary follow-ups are scheduled and attended to. Orders: Referrals Allergy & Immunology Referral J30.9 - Allergic rhinitis, unspecified Medications: New hydroxyzine HCl 25 mg PO BID PRN 60 tabs 3RF anxiety Patient Instructions: - May take Zyrtec for allergies and report any side effects. 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 - Attend the referred resistor inspector appointments. - Get fasting labs done for liver function evaluation within the next week. - Follow up with me in one month to discuss lab results and overall progress and if possible, an extended physical exam. - Continue efforts to engage in therapy and reach out if there are any immediate concerns regarding mental health or physical symptoms. Patient was informed and verbally consented to the use of an ambient scribe for clinic note documentation during this visit.
[2024-06-03 14:55] VITALS: BP 117/57; PULSE 73; RESP 16; TEMP 37.1; O2SAT 100; BMI 37.2
== END 2024-06-03 15:43 | disposition home or self-care (01) ==
PROVIDERS: Visit Provider Nurse Practitioner Family
DX: J30.9 Allergic rhinitis, unspecified (principal); F41.9 Anxiety disorder, unspecified; F32.A Depression, unspecified; Z00.00 Encounter for general adult medical examination without abnormal findings

== ENCOUNTER 2024-06-04 11:49 | Outpatient (REF) | payer OTHER, SELFPAY ==
[2024-06-04 12:14] LABS: MANUAL DIFF FLAG NO
[2024-06-04 12:27] LABS: Basophils Absolute Auto 0.1 X10*3/uL (0.0-0.2); Basophils Percent Auto 1.3 % (0-2); Eosinophils Absolute Auto 0.1 X10*3/uL (0.0-0.4); Eosinophils Percent Auto 1.5 % (0-4); Hematocrit 38.2 % (37.0-47.0); Imm Gran Abs Auto 0.01 X10*3/uL (0.00-0.03); Imm Gran Pct Auto 0.2 % (0.0-0.4); Lymphocytes Absolute Auto 2.1 X10*3/uL (1.2-4.9); Lymphocytes Percent Auto 34.1 % (20-40); Mean Corpuscular HGB Conc 31.4 g/dl (31.0-35.0); Mean Corpuscular Hemoglobin 24.5 pg (27.0-33.0); Mean Corpuscular Volume 78.1 fL (80.0-98.0); Mean Platelet Volume 11.9 fL (9.4-12.3); Monocytes Absolute Auto 0.5 X10*3/uL (0.1-1.2); Neutrophils Absolute Auto 3.4 x10*3/uL (2.0-8.3); Neutrophils Percent Auto 54.9 % (45-73); Platelet Count 175 X10*3/uL (160-400); Red Blood Count 4.89 X10*6/uL (4.20-5.50); Red Cell Distribution Width 15.2 % (11.0-16.0); White Blood Count 6.2 X10*3/uL (4.8-10.8)
[2024-06-04 12:40] LABS: Appearance Urine Clear; Color Urine Yellow; Glucose Urine UA Negative (Negative); Leukocyte Esterase Urine Negative (Negative); Nitrite Urine Negative (Negative); Specific Gravity - Urine 1.025 (1.005-1.025); Urine Blood Negative (Negative); Urine Ketones Negative (Negative); Urine Protein Negative (Neg-Trace)
[2024-06-04 12:57] LABS: Alanine Aminotransferase 89 U/L (0-31); Albumin Level 4.3 g/dL (3.5-5.0); Alkaline Phosphatase 94 U/L (39-117); Anion Gap 8 (12-20); Aspartate Amino Transferase 44 U/L (5-31); Bilirubin Total 0.4 mg/dL (0.0-1.0); Blood Urea Nitrogen 15 mg/dL (9-16); Calcium 9.7 mg/dL (8.4-10.2); Carbon Dioxide 30 mmol/L (22-29); Chloride 107 mmol/L (96-108); Cholesterol 155 mg/dL (<200); Estimated Glomerular Filt Rate > 60; Glucose Fasting 101 mg/dL (60-99); HDL Cholesterol 38 mg/dL (>40); LDL Cholesterol Calculated 102 mg/dL (<100); Potassium 4.4 mmol/L (3.3-5.1); Sodium 141 mmol/L (135-145); Triglycerides 77 mg/dL (<150)
[2024-06-04 13:16] LABS: TSH reflex Free T4 1.09 uIU/mL (0.32-4.0)
== END 2024-06-04 11:50 | disposition home or self-care (01) ==
LOC: HO.LAB 11:49
PROVIDERS: PCP Nurse Practitioner Family; Visit Provider Nurse Practitioner Family
DX: Z00.00 Encounter for general adult medical examination without abnormal findings (principal)
CPT/HCPCS: 36415; 80053; 80061; 81003; 84443; 85025

== ENCOUNTER 2024-07-09 08:06 | Outpatient (AMB) | payer OTHER, SELFPAY ==
--- NOTE | 2024-07-09 08:08 | MHC.PC.OV ---
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: No Is last menstrual period known: Yes Last menstrual period: 06/20/24 Post menopausal: No Patient : No Allergies peach Allergy (Unknown, Verified 07/09/24 08:25) Unknown carrot Adverse Reaction (Intermediate, Verified 07/09/24 08:25) Itching Jackfruit Adverse Reaction (Intermediate, Uncoded 07/09/24 08:25) Anaphylaxis Sugarsnap Peas Adverse Reaction (Intermediate, Uncoded 07/09/24 08:25) Itching Medication List - Last Reconciled 07/09/24 by Alma Dalton CNP hydroxyzine HCl 25 mg PO BID PRN lysine 975 mg PO DAILY Tobacco use date assessed: 07/09/24 Dental Screening Dental Screen Date: 07/09/24 Did you have a dental visit in the last 12 months?: Yes Did you have a dental problem in the last 6 months where you did not have access to dental care?: No Was dental information given to patient?: Patient has dentist HPI HPI Comments History of Present Illness Details 29-year-old female presents for an extended physical exam. She stopped taking hydroxyzine because she was very sleeping during the day and wake at night on the medication. She was also constipated on the medication. Acute issue(s) - Daily anxiety and depressive symptoms due to personal situations, including the of her mother in 12/2023. No history of psychotropic medication; she is willing to try an antidepressant. She has history of psychotherapy with good effects. She has been on a wait list with [facility] to see a therapist for the past 2 months. Past Medical History - Left breast fibroadenoma, PCOS, obesity, allergies, anxiety, depression, myopia Social History - Nonsmoker. Does not vape. Drinks 1 beer and a cup of wine monthly. Smokes 2-3 puffs of a small joint of cannabis every night. - Has been making healthy dietary choices. She does not exercise. She has trouble falling asleep but able maintain sleep; she sleeps an average of 5 hours. Health maintenance - Last eye exam was was in October 2023. Encouraged to perform eye exam at least annually. - Last dental visit was a few years ago; encouraged to schedule an appointment with his dentist for routine dental care. - Last tetanus vaccine was more than 10 years ago; Declines the vaccine. - Has not been vaccinated for the flu this season; declines vaccination. - Last pap smear test with [facility] fan mail editor in December 2020. She notes that she has an appointment for a pap smear test on 07/23/2024. [facility] Medical History (Updated 07/09/24 @ 08:29 by Alma Dalton CNP) Heavy menstrual bleeding Fibroadenoma of breast Obesity PCOS (polycystic ovarian syndrome) Migraine Lipoma of back Surgical History No pertinent past surgical history Family History (Updated 05/22/24 @ 13:08 by Silvia Waters LPN) Maternal Aunt History of breast cancer Mother Liver disease Brother NAFLD (nonalcoholic fatty liver disease) Social History Housing: Apartment Alcohol intake: current Alcohol intake frequency: a few times a month Patient Tobacco Use Status: Never used Tobacco e-Cigarette/Vaping Use: Never Used Second Hand Smoke Exposure: No service: No Current occupational status: employed 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 1. Little interest or pleasure in doing things: more than half the days 2. Feeling down, depressed, or hopeless: more than half the days 3. Trouble falling or staying asleep, or sleeping too much: nearly every day 4. Feeling tired or having little energy: more than half the days 5. Poor appetite or overeating: more than half the days 6. Feeling bad about yourself - or that you are a failure or have let yourself or your family down: more than half the days 7. Trouble concentrating on things, such as reading the newspaper or watching television: more than half the days 8. Moving or speaking so slowly that other people could have noticed. Or the opposite - being so fidgety or restless that you have been moving around a lot more than usual: not at all 9. Thoughts that you would be better off or of hurting yourself in some way: not at all Total score: 15 Depression Screening Interpretation: Positive Depression Screening Follow-up: Existing condition and In treatment Depression Screening Done: Yes Source: Developed by Drs. Anthony Sylvesetr, Megan Marie, Emmanuel Nash and colleagues, with an educational oneida from [employer]. Thrive Questionnaire Date Thrive assessed: 07/09/24 I am a: Patient What is your living situation today?: I have a steady place to live Within the past 12 months, did the food you bought not last and you didn't have the money to get more?: Never true Within the past 12 months, did you worry whether your food would run out before you got money to buy more?: Never true Do you have trouble paying for medicines?: No Do you have trouble getting transportation to medical appointments?: No Do you have trouble paying your heating and electricity bill?: Yes Do you have trouble taking care of your child, family member or friend?: No Do you have trouble with day-to-day activities such as bathing, preparing meals, shopping, managing finances, etc.?: No Are you currently unemployed and looking for a job?: No Are you interested in more education?: Yes THRIVE Score: 1 AUDIT C Alcohol Use Questionnaire (AUDIT-C) 1. How often do you have a drink containing alcohol?: Monthly or less 2. How many drinks containing alcohol do you have on a typical day when you are drinking?: 1 or 2 3. How often do you have six or more drinks on one occasion?: Never Total Score: 1 Score Reviewed/Action Taken: Yes SARAI-7 AMB Questionnaire SARAI-7 Date SARAI - 7 assessed: 07/09/24 Feeling nervous, anxious, or on edge: 2 = More than half the days Not being able to stop or control worryin = More than half the days Worrying too much about different things: 2 = More than half the days Trouble relaxin = More than half the days Being so restless that it is hard to sit still: 1 = Several days Becoming easily annoyed or irritable: 2 = More than half the days Feeling afraid as if something awful might happen: 2 = More than half the days Total SARAI-7 score (0-4 normal; 5-9 mild; 10-14 moderate; 15-21 severe): 13 Source: Developed by Drs. Anthony Sylvester, Megan Marie, Emmanuel Nash and colleagues, with an educational oneida from [employer]. SARAI-7 Assessment Billing SARAI-7 Assessment Tool: SARAI-7 Assessment 42093 Review of Systems Const Details: Denies chills, Denies fatigue, Denies fever(s), Denies headache(s) and Denies weakness HEENT Denies change in vision, Denies dizziness, Denies headache(s), Denies hearing loss, Denies nasal congestion, Denies sinus pain, Denies sinus pressure and Denies sore throat Card Denies chest pain, Denies lightheadedness, Denies dyspnea and Denies other (palpitations) Resp Denies cough, Denies dyspnea and Denies wheezing GI Denies abdominal pain, Denies melena, Denies hematochezia, Denies change in bowel habits, Denies dyspepsia and Denies nausea Denies hematuria and Denies dysuria Musc Denies abnormal gait, Denies myalgias, Denies arthralgias, Denies numbness and Denies tingling Skin/Breast Denies rash, Denies unusual bruising and Denies wounds Neuro Denies abnormal gait, Denies dizziness, Denies headache(s), Denies memory loss, Denies numbness, Denies Sensory deficit (Neuro), Denies tingling and Denies weakness Psych Denies anxiety, Denies depression and Denies memory loss Endo Denies cold intolerance, Denies fatigue, Denies heat intolerance, Denies polydipsia and Denies polyuria Toño/Lymph Denies easy bleeding and Denies easy bruising Aller/Immun Denies wheezing Physical exam (Primary Care) Vital Signs: Last Vital Signs Temp 98 F 07/09/24 08:13 Pulse 72 07/09/24 08:13 Resp 16 07/09/24 08:13 BP 111/57 L 07/09/24 08:13 Pulse Ox 98 07/09/24 08:13 Oxygen Delivery Method Room Air 07/09/24 08:13 BMI result Body Mass Index 36.9 Tobacco/Smoking Status: Tobacco use Status Tobacco use date assessed 07/09/24 07/09/24 08:18 Patient Tobacco Use Status Never used Tobacco 07/09/24 08:11 e-Cigarette/Vaping Use Never Used 07/09/24 08:11 PHQ-9: PHQ-9 Score PHQ-9: Total score 15 07/09/24 08:21 Depression Screening Interpretation: Positive Depression Screening Follow-up: Existing condition and In treatment Thrive Assessment: Date of Thrive Assessment Date Thrive assessed 07/09/24 07/09/24 08:11 Const Other: General: no acute distress, well developed, alert and awake Nutritional Appearance: well nourished Orientation/consciousness: patient oriented x3 HENMT Head: Yes normocephalic and Yes atraumatic Ears: hearing grossly normal bilaterally and TM's normal bilaterally General nose exam: Normal external nose present and Normal nares present Mouth: Normal oral and palatal mucosa present and moist mucous membranes Teeth and gingiva: dentition normal Throat: Yes oropharynx normal Eyes Pupils: Equal, round and reactive pupils present and Pupil accommodation reflex normal EOM: EOMs intact bilaterally Neck Neck: Yes normal visual inspection, Yes no lymphadenopathy and Yes trachea midline Thyroid: Thyroid normal Carotids: no bruits Lymphatic: no lymphadenopathy noted Chest Chest palpation & inspection: normal inspection of the chest Resp Effort & Inspection: normal respiratory effort Auscultation: clear to auscultation bilaterally Cardio Rate: regular rate Rhythm: regular rhythm Heart sounds: S1 normal heart sound present, S2 normal heart sound present, no gallops, no murmurs and no rubs Bruits: no abdominal aortic bruits and no carotid bruits GI Palpation (GI): No Abdominal aortic bruit present, Soft to palpation, nontender, No hepatosplenomegaly present and No Rebound tenderness present Auscultation: normal bowel sounds General: Yes no CVA tenderness Back/Spine/Pelvis Back: no CVA tenderness Cervical Spine: cervical ROM normal and No Cervical spine tenderness Thoracic/Lumbar Spine: thoraco-lumbar ROM normal, No pain with thoraco-lumbar ROM, No thoracic spinal tenderness and No lumbar spinal tenderness Skin General: warm and dry. Normal skin color. Normal skin turgor Lesions: no lesions Rashes: no rashes Trauma: no lacerations or abrasions Wounds: no wounds Nails: normal Neuro General: patient oriented x3, gait normal and CN's II-XI intact bilaterally Cranial nerves: Yes Equal, round and reactive pupils present Cognition (Neuro): normal cognition Gait exam (Neuro): Normal gait present Motor exam (neuro): 5/5 motor strength present throughout Sensory Exam: No Sensory deficit (Neuro) Deep tendon reflexes (DTR's): Right patellar reflex intensity grade: 2+ and Left patellar reflex intensity grade: 2+ Extrem General: Yes normal to inspection, No edema and No calf tenderness Psych Appearance: grossly normal Affect: normal affect Attitude: cooperative Thought process: Normal thought process present Coding Level of Care Code Est Pt Level 3 (72878) Est Pt Prev Care 18-39y(54336) Diagnoses Normal physical exam Z00.00 Anxiety and depression F41.9; F32.A Elevated fasting glucose R73.01 Transaminitis R74.01 Dyslipidemia E78.5 Allergic rhinitis J30.9 Environmental allergies Z91.09 Obesity E66.9 Additional Codes SARAI-7 Assessment Billing - SARAI-7 Assessment Tool: SARAI-7 Assessment 60760 ([id number]) Assessment & Plan Assessment & Plan (1) Normal physical exam: Code(s): Z00.00 - Encounter for general adult medical examination without abnormal findings Category: Medical Plan: No significant functional limitations noted. (2) Anxiety and depression: Code(s): F41.9 - Anxiety disorder, unspecified; F32.A - Depression, unspecified Category: Medical Plan: Increased anxiety and depressive symptoms related to personal situation, including the of her mother last year. She also has trouble falling asleep. She was on hydroxyzine for anxiety with stop taking the medication due to adverse reactions of drowsiness, insomnia, and constipation. She has never been on psychotropic medication but he is willing to be on an antidepressant at this time. She is on wait list to establish with a therapist. Sertraline 50 mg daily ordered; advised to take as prescribed. Instructed on the risks, benefits, and potential adverse reactions of the medication. Routine exercise encouraged. Follow-up in 6 weeks or sooner with symptoms or concerns. Verbalized understanding and agreed with treatment plan. (3) Elevated fasting glucose: Code(s): R73.01 - Impaired fasting glucose Category: Medical Plan: Recent fasting glucose is slightly elevated, 101. Will recheck fasting glucose and make changes as needed. Advised to fast for 10-12 hours, may drink water, and perform blood work a few days before next visit. Verbalized understanding and agreed with the plan. (4) Transaminitis: Code(s): R74.01 - Elevation of levels of liver transaminase levels Category: Medical Plan: Recent AST and ALT levels are slightly elevated, 44 and 89 respectively. She has history of elevated AST and ALT. Hepatic steatosis is likely. Routine exercise and healthy diet, including low-fat encouraged. Will monitor lipid panel periodically or if symptomatic. Verbalized understanding and agreed with treatment plan. (5) Dyslipidemia: Code(s): E78.5 - Hyperlipidemia, unspecified Category: Medical Plan: Recent LDL level is slightly elevated, 102, HDL level is slightly low, 38. Advised to limit foods high in saturated fat and avoid foods high in trans fat. Routine exercise encouraged. Will monitor lipid panel periodically. Verbalized understanding and agreed with the plan. (6) Allergic rhinitis: Code(s): J30.9 - Allergic rhinitis, unspecified Category: Medical Plan: No acute symptoms. She was recently referred to an land manager. (7) Environmental allergies: Code(s): Z91.09 - Other allergy status, other than to drugs and biological substances Category: Medical Plan: Plan as above. (8) Obesity: Code(s): E66.9 - Obesity, unspecified Category: Medical Plan: She currently weighs 215 lb, BMI is 36.9. She generally make healthy dietary choices. She does not exercise. She was referred to [facility] weight management and has been on a wait list. She requests a referral to a dietitian. Healthy diet and routine exercise encouraged. Referred to [facility] dietitian. Follow-up as needed. Verbalized understanding and agreed with the plan. Orders: Orders Glucose Fasting 6 Weeks R73.01 - Impaired fasting glucose Referrals Nutrition/Dietitian Referral E66.9 - Obesity, unspecified Medications: New sertraline 50 mg PO DAILY 30 days 30 tabs 3RF Discontinued hydroxyzine HCl Discontinued Reason: Doctor's Order 25 mg PO BID PRN 60 tabs 3RF anxiety
[2024-07-09 08:13] VITALS: BP 111/57; PULSE 72; RESP 16; TEMP 36.6; O2SAT 98; BMI 36.9
== END 2024-07-09 08:47 | disposition home or self-care (01) ==
PROVIDERS: PCP Nurse Practitioner Family; Visit Provider Nurse Practitioner Family
DX: Z00.00 Encounter for general adult medical examination without abnormal findings (principal); F41.9 Anxiety disorder, unspecified; E66.9 Obesity, unspecified; Z68.36 Body mass index [BMI] 36.0-36.9, adult; F32.A Depression, unspecified; R73.01 Impaired fasting glucose; R74.01 Elevation of levels of liver transaminase levels; E78.5 Hyperlipidemia, unspecified; J30.9 Allergic rhinitis, unspecified; Z91.09 Other allergy status, other than to drugs and biological substances

== ENCOUNTER → 2024-07-09 08:06 | Outpatient (BNVA) | payer OTHER, SELFPAY | PROVIDERS: PCP Nurse Practitioner Family; Visit Provider Nurse Practitioner Family | DX: Z00.00 Encounter for general adult medical examination without abnormal findings (principal); F41.9 Anxiety disorder, unspecified; F32.A Depression, unspecified; R73.01 Impaired fasting glucose; R74.01 Elevation of levels of liver transaminase levels; E78.5 Hyperlipidemia, unspecified; J30.9 Allergic rhinitis, unspecified; E66.9 Obesity, unspecified; Z68.36 Body mass index [BMI] 36.0-36.9, adult; Z91.09 Other allergy status, other than to drugs and biological substances | CPT/HCPCS: 96127 ==

== ENCOUNTER 2024-07-23 12:57 | Outpatient (REF) | payer OTHER, SELFPAY ==
--- OUTSIDE RECORDS SUMMARY | 2024-07-23 15:44 | XMS_ITS | Clinical Summary ---
Author Organization [employer] [facility] ity Address [address] [place] [address] Care Team Providers Care Project Management It Specialist Name Role Phone Sharda Feng MD Primary Care Provider [phone] Surgical History Surgery Date Site/Laterality Comments WISDOM [...] age to complete this topic Care Teams Project Management It Specialist Relationship Specialty Start Date End Date Sharda Feng MD PCP - General Internal Medicine 02/24/20
== END 2024-07-23 12:58 | disposition home or self-care (01) ==
LOC: HO.LNP 12:57
PROVIDERS: PCP Nurse Practitioner Family; Visit Provider Advanced Practice Midwife
DX: N93.9 Abnormal uterine and vaginal bleeding, unspecified (principal)
CPT/HCPCS: 58100; 81025; 88305

== ENCOUNTER 2024-07-23 12:57 | Outpatient (AMB) | payer OTHER, SELFPAY ==
--- NOTE | 2024-07-23 13:01 | MHC.OFFVIS ---
Vital Signs 07/23/24 13:05 BP 124/76 Intake Visit Reasons: Ultra sound follow up/EMB Allergies peach Allergy (Unknown, Verified 07/23/24 13:05) Unknown carrot Adverse Reaction (Intermediate, Verified 07/23/24 13:05) Itching Jackfruit Adverse Reaction (Intermediate, Uncoded 07/09/24 08:25) Anaphylaxis Sugarsnap Peas Adverse Reaction (Intermediate, Uncoded 07/09/24 08:25) Itching HPI Comments Details: Patient is here today for ultrasound results in an endometrial biopsy. She has a history of AUB cycles are slightly irregular off by 1 or 2 weeks she bleeds 4-5 days heavy for 2 days last 2 cycles she reports gushing of watery blood. Cramping pain with the bleeding that radiates down her thigh, she takes models to help. She also admits having some postcoital bleeding and bleeding during orgasm without vaginal penetration. Additionally she has intermittent right-sided jabbing pain after sudden movement, lasting several seconds which resolves when she gets up and moves around. Labs: TSH 1.09, H/H-12.0/38.2 on 06/04/24. [facility] Medical History (Updated 07/23/24 @ 13:44 by Luzma Yañez CNM) Complex ovarian cyst Heavy menstrual bleeding Fibroadenoma of breast Obesity PCOS (polycystic ovarian syndrome) Migraine Lipoma of back Surgical History No pertinent past surgical history Family History (Updated 05/22/24 @ 13:08 by Silvia Waters LPN) Maternal Aunt History of breast cancer Mother Liver disease Brother NAFLD (nonalcoholic fatty liver disease) Social History Housing: Apartment Alcohol intake: current Alcohol intake frequency: a few times a month Patient Tobacco Use Status: Never used Tobacco e-Cigarette/Vaping Use: Never Used Second Hand Smoke Exposure: No service: No Current occupational status: employed 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 Current occupational exposures/hazards: No Sexual orientation: Lesbian/Trin[place]/Homosexual Cognitive needs: No Hearing needs: No Vision needs: No Female Reproductive History Menstrual Age of Menarche: 14 Review of Systems Const All systems reviewed & are unremarkable except as noted in HPI and below Physical Exam Const General: cooperative, healthy appearing and no acute distress Orientation/consciousness: patient oriented x3 GI Inspection: Yes normal to inspection Palpation (GI): Soft to palpation and Other GI palpation findings present (Nontender) Rectal Exam - Female: visual inspection normal General: Yes bladder normal to palpation External Female Exam: normal appearance of the urethra Speculum Exam - Vagina: normal appearance of the vagina, normal palpation and normal vaginal discharge Speculum Exam - Cervix: normal appearance of the cervix and normal palpation Bimanual exam- vagina & uterus: normal bimanual exam, normal palpation, uterine size normal, bladder normal to palpation, normal palpation, uterine shape normal and non-tender Bimanual Exam- Adnexa, other: normal adnexae Neuro General: patient oriented x3 Office Procedures Endometrial Biopsy Details: The patient is here today for an endometrial biopsy due to AUB to rule out any pathology including atypical, hyperplasia or cancer cells of the uterus. She was counseled regarding anticipatory guidance for the procedure including the risks for pain, infection, bleeding, perforation, potential injury to the tissues may include the cervix, uterus, tubes, bladder and bowels. These injuries may include further treatment and evaluation including surgery, blood transfusions, antibiotics, hospitalizations and anesthesia. Permanent injury and scarring can occur. She was consented for the procedure, and the consent forms were signed. She is agreeable to have the procedure today. All questions were answered. Endometrial Biopsy Procedure: The patient was placed in the dorsal lithotomy position and a sterile speculum inserted. Using aseptic technique for the procedure. The cervix was cleansed with Betadine x 3 swabs. A single toothed tenaculum was placed on the cervix for stabilization and the uterus was sounded to 6.5 cm with a 4mm pipelle, and tissue sample obtained. Minimal bleeding was observed. The tissue sample was placed in formalin in a patient labeled container by staff assisting and sent to the pathology department for processing and interpretation. The patient tolerate the procedure well and was in good condition when leaving the department. Endometrial Biopsy Post Procedure Care: Nothing in the vagina including: tampons, douching or intimacy until all the bleeding has subsided. There may be some post procedure bleeding for several days, this bleeding is usually light and may turn to a light brown or pink color. Mild cramps may occurs. Nothing in the vaginal including: tampons, douching, or intimacy until all the bleeding has subsided. You may take an over the counter mild analgesic such as Tylenol or Advil (if no allergies) per the manufactures recommendation on dosing, frequency, and follow the directions completely. Call the office if any: fever (over 100.4), flu like symptoms, abdominal pain (worse than cramping), foul smelling, infected appearing vaginal discharge, or heavy bleeding. If indicated: Use condoms to prevent and STI's, and only after the bleeding has stopped completely. Return to the office in 2 weeks for results and plan of care. This note is constructed using voice recognition software. While every effort has been made to ensure accuracy, building insulation installer errors may have been included. 10125-Isfqffiykib Biopsy Results AMB Test Urine AMB Test Urine Negative Last Edit by NARDA Coon on 07/23/24 13:13 Results Reviewed Results Reviewed: [place] [address] Ultrasound Report Signed Patient: Debra Lomas MR#: [id number] : 1995 Acct:[id number] Age/Sex: 29 / F ADM Date: 06/03/24 Loc: HO.US Attending Dr: Luzma Yañez CNM Ordering Physician: Luzma Yañez CNM Date of Service: 06/03/24 Procedure(s): US pelvic and transvaginal Accession Number(s): [id number] cc: Luzma Yañez CNM~ EXAMINATION: US PELVIS CLINICAL INFORMATION: Abnormal uterine bleeding, last menstrual period 05/21/2024. COMPARISON: 02/08/2021 TECHNIQUE: Ultrasound of the pelvis is performed using both transabdominal and transvaginal transducers along with Doppler. Transvaginal imaging is performed due to inadequate visualization transabdominally. FINDINGS: The anteverted uterus measures 6.9 x 2.1 x 2.5 cm. Endometrial thickness is 8 mm. Heterogeneous uterine echotexture. Right ovary measures 1.7 x 3.1 x 1.8 cm, volume 5.0 mL. 1.2 x 1.1 x 1.4 cm exophytic right ovarian cyst with thin septation, likely physiologic. Left ovary measures 2.0 x 2.7 x 1.7 cm, volume 4.8 mL. US/US pelvic and transvaginal IMPRESSION: 1. Endometrial thickness is 8 mm. 2. A 1.4 cm mildly complex right ovarian cyst. 3. Gynecologic consultation and correlation with clinical exam recommended to determine further management for this patient with abnormal uterine bleeding. Electronically signed by: Shelley Kraus MD 07/20/2024 11:53 AM [facility] [place] Dictated By: Shelley Kraus MD Signed By: <Electronically signed by Shelley Kraus MD in OV> 07/20/24 1153 DD/ 1323 TD/TT: 06/03/24 1335 Microwave Technician: Assessment & Plan Assessment & Plan (1) Complex ovarian cyst: Code(s): N83.299 - Other ovarian cyst, unspecified side Category: Medical Plan: Discussed: Ultrasound findings-complex ovarian cyst right side. Counseled regarding findings of: Complex ovarian cyst, which is often benign, and most resolve on their own overtime. Some develop into premalignant or malignant tumors. Limitations of testing for diagnostic purposes. Further monitoring and evaluation is recommended with US, possible CT, or MRI study. If persists, or is indicated (Ca-125, Carbohydrate Antigen 19-9, & Carcinoembryonic Antigen) labs will be ordered and referral to [facility] or general gynecology for MD care if indicated for possible surgical consult. Follow up in person for test results. All of her questions and concerns were addressed to the best of my ability and shared decision making. She is agreeable to the plan of care. This note is constructed using voice recognition software. While every effort has been made to ensure accuracy, building insulation installer errors may have been included. (2) Abnormal uterine bleeding (AUB): Code(s): N93.9 - Abnormal uterine and vaginal bleeding, unspecified Plan See EMB procedure notes. Plan further discussion of cycle control methods at her follow up EMB results appointment in 2 weeks. The patient expressed understanding and agreement with the plan of care. All of her questions and concerns were addressed to the best of my ability. This note is constructed using voice recognition software. While every effort has been made to ensure accuracy, building insulation installer errors may have been included. Orders: Orders AMB HCG Urine Test Today Z32.02 - Encounter for test, result negative Surgical Today N93.9 - Abnormal uterine and vaginal bleeding, unspecified US pelvic and transvaginal 09/01/24 N83.299 - Other ovarian cyst, unspecified side Coding Level of Care Code Procedure Only Diagnoses Complex ovarian cyst N83.299 Abnormal uterine bleeding (AUB) N93.9 CPT Codes Endometrial Biopsy - CPT: 74815-Yxknnyxzkaw Biopsy ([id number])
--- NOTE | 2024-07-23 13:04 | MHC.OFFVIS ---
Vital Signs 07/23/24 13:05 BP 124/76 Intake Visit Reasons: Ultra sound follow up/EMB Truck Switcher: Truck Switcher Present (Zeinab) Allergies peach Allergy (Unknown, Verified 07/23/24 13:05) Unknown carrot Adverse Reaction (Intermediate, Verified 07/23/24 13:05) Itching Jackfruit Adverse Reaction (Intermediate, Uncoded 07/09/24 08:25) Anaphylaxis Sugarsnap Peas Adverse Reaction (Intermediate, Uncoded 07/09/24 08:25) Itching Is last menstrual period known: Yes Last menstrual period: 07/16/24 [facility] Medical History (Updated 07/09/24 @ 08:29 by Alma Dalton CNP) Heavy menstrual bleeding Fibroadenoma of breast Obesity PCOS (polycystic ovarian syndrome) Migraine Lipoma of back Surgical History No pertinent past surgical history Family History (Updated 05/22/24 @ 13:08 by Silvia Waetrs LPN) Maternal Aunt History of breast cancer Mother Liver disease Brother NAFLD (nonalcoholic fatty liver disease) Social History Housing: Apartment Alcohol intake: current Alcohol intake frequency: a few times a month Patient Tobacco Use Status: Never used Tobacco e-Cigarette/Vaping Use: Never Used Second Hand Smoke Exposure: No service: No Current occupational status: employed 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
[2024-07-23 13:05] VITALS: BP 124/76
--- OUTSIDE RECORDS SUMMARY | 2024-07-23 14:49 | XMS_ITS | Clinical Summary ---
Author Organization [facility] [facility] ity Address [address] [place] [address] Care Team Providers Care Substance Abuse Clinician Name Role Phone Sharda Feng MD Primary Care Provider [phone] Surgical History Surgery Date Site/Laterality Comments WISDOM TOOTH EXTRACTION PROCEDURE: HISTORICAL WISDOM TEETH EXTRACTION Medical History Medical History Date Comments Asthma DX:Asthma Family History Medical History Relation Name Comments Hypertension Father Relation Name Status Comments Father Alive Mother Alive Social History Tobacco Use Types Packs/Day Years Used Date Smoking Tobacco: Never Smokeless Tobacco: Never Alcohol Use Standard Drinks/Week Comments Yes 0 (1 standard drink = 0.6 oz pur e alcohol) Sex and Gender Information Value Date Recorded Sex Assigned at Not on file Gender Identity Not on file Sexual Orientation Not on file Obstetrics History Plan of Treatment Health Maintenance Due Date Last Done Comments DTaP,Tdap,and Td Vaccines (1 - Tdap) 2014 Hepatitis B Vaccines (1 of 3 - 19+ 3-dose series) 2014 Cervical Cancer Screening: P ap Smear 2016 COVID-19 Vaccine (2023-2 5 season) 2024 Influenza Vaccine (#1) 2024 HIB Vaccines Aged Out No longer eligi ble based on patient's age to complete this topic HPV Vaccines Aged Out No longer eligi ble based on patient's age to complete this topic Hepatitis A Vaccines Aged Out No long er eligible based on patient's age to complete this topic IPV Vaccines Aged Out No longer eligi ble based on patient's age to complete this topic MMR Vaccines Aged Out No longer eligi ble based on patient's age to complete this topic Meningococcal ACWY Vaccine Aged Out N o longer eligible based on patient's age to complete this topic Pneumococcal Vaccine: Pediat rics (0 to 5 Years) and At-Risk Patients (6 to 64 Years) Aged Out No longer eligible b ased on patient's age to complete this topic RSV Immunization Patients Un koko 20 months Aged Out No longer eligible b ased on patient's age to complete this topic Varicella Vaccines Aged Out No longer eligible based on patient's age to complete this topic Care Teams Substance Abuse Clinician Relationship Specialty Start Date End Date Sharda Feng MD PCP - General Internal Medicine 02/24/20
== END 2024-07-23 13:59 | disposition home or self-care (01) ==
PROVIDERS: PCP Nurse Practitioner Family; Visit Provider Advanced Practice Midwife
DX: N93.9 Abnormal uterine and vaginal bleeding, unspecified (principal); N83.299 Other ovarian cyst, unspecified side; Z32.02 Encounter for pregnancy test, result negative
CPT/HCPCS: 58100

== ENCOUNTER 2024-08-20 11:38 | Outpatient (AMB) | payer OTHER, SELFPAY ==
--- NOTE | 2024-08-20 11:37 | A.OFFVIS_ITS ---
Intake Visit Reasons: EMB results Dust Collector Ore Crushing: Dust Collector Ore Crushing Present Allergies peach Allergy (Unknown, Verified 07/23/24 13:05) Unknown carrot Adverse Reaction (Intermediate, Verified 07/23/24 13:05) Itching Jackfruit Adverse Reaction (Intermediate, Uncoded 07/09/24 08:25) Anaphylaxis Sugarsnap Peas Adverse Reaction (Intermediate, Uncoded 07/09/24 08:25) Itching Is last menstrual period known: Yes HPI Comments Details: Tele Health Visit Total time I personally spent on visit and management today: 20 minutes. Time spent included review of pertinent office notes in the electronic health record; review of laboratory and imaging results; review of personal family medical history; discussing diagnosis and plan of care with the patient; documenting the encounter in the EMR. Patient presents to discuss: Endometrial biopsy results. She reports doing well, has end of cycle, she feels was traditional maori health practitioner and less painful. She is interested in the Mirena IUD. [facility] Medical History (Updated 07/23/24 @ 13:44 by Luzma Yañez CNM) Complex ovarian cyst Heavy menstrual bleeding Fibroadenoma of breast Obesity PCOS (polycystic ovarian syndrome) Migraine Lipoma of back Surgical History No pertinent past surgical history Family History (Updated 05/22/24 @ 13:08 by Silvia Waters LPN) Maternal Aunt History of breast cancer Mother Liver disease Brother NAFLD (nonalcoholic fatty liver disease) Social History Housing: Apartment Alcohol intake: current Alcohol intake frequency: a few times a month Patient Tobacco Use Status: Never used Tobacco e-Cigarette/Vaping Use: Never Used Second Hand Smoke Exposure: No service: No Current occupational status: employed 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 Current occupational exposures/hazards: No Sexual orientation: Lesbian/Trinidad/Homosexual Cognitive needs: No Hearing needs: No Vision needs: No Female Reproductive History Menstrual Age of Menarche: 14 Review of Systems Const All systems reviewed & are unremarkable except as noted in HPI and below Endo Reports no additional complaints Physical Exam Const General: cooperative, healthy appearing and no acute distress Psych Appearance: well kempt Attitude: cooperative Thought process: Normal thought process present Telehealth Telehealth Telehealth Platform: [employer] Location of provider rendering services: practice address Location of patient: address on file Patient Identification confirmed using: Name, : Yes Telehealth method: video Patient verbally consented to treatment: Yes Patient verbally consented to billing insurance company: Yes Patient informed of any privacy concerns related to visit: Yes Results Reviewed Results Reviewed: Surgical Pathology S25-374 Name: Debra Lomas Age/Sex: 29/F Attending: Luzma Yañez CNM : 1995 Submitted by: Luzma Yañez CNM Copies to: Alma Dalton CNP MR #: [id number] Status: DEP REF Collected: 07/23/24 Location: [facility] Received: 07/24/24 Diagnosis Endometrium, biopsy: - Proliferative endometrium; no atypia or hyperplasia identified. - Rare strips of endocervical epithelium within normal limits; mucoinflammatory material; no atypia identified. Clinical History AUB Microscopic Description Microscopic sections reviewed. Material Received Endometrial biopsy Gross Description Received in formalin labeled ?EMB? is a 2.0 x 1.5 x 0.5 cm aggregate of multiple irregular and tubular cast fragments of congested and hemorrhagic treadwell-brown and red-tissue blood, submitted in toto in a cassette labeled A. CEDS Copies To Luzma Yañez CNM [facility] Women's Services [address] [place], [place] [id number] Alma Dalton [facility] Family Medicine [address] [place] [address] [phone] [email or web address] NOTE: Unless otherwise stated, all tissue is formalin-fixed and paraffin- embedded. Some or all of the immunohistochemical tests Patient: Debra Lomas Age/Sex: 29/F MR#: [id number] Page 1 of 2 Surgical Pathology [id number] reported herein may have been developed and their performance characteristics determined by [facility]. They have not been cleared or approved by the U.S. Food and Drug Administration (FDA). However, the FDA has determined that such clearance or approval is not necessary. This laboratory is certified under the Clinical Laboratory Improvement Amendments of 1988 (CLIA) as qualified to perform high complexity clinical laboratory testing. Electronically Signed By: Fritz Penaloza MD 07/28/24 7854 Patient: Debra Lomas Age/Sex: 29/F MR#: [id number] Page 2 of 2 Assessment & Plan Assessment & Plan (1) Abnormal uterine bleeding (AUB): Code(s): N93.9 - Abnormal uterine and vaginal bleeding, unspecified Plan: Reviewed options for treatment. (2) Encounter to discuss test results: Code(s): Z71.2 - Person consulting for explanation of examination or test findings Plan: Discussed: EMB findings no atypia. Plan Counseled regarding specifics on Mirena insertion. Advised pre procedure planning with eating and drinking, taking either 2 Tylenol or 3 ibuprofen with food per manufacture's recommendations, if no contraindications 1 hour before insertion appointment. Call with next menses so that appointment can be scheduled. The patient expressed understanding and agreement with the plan of care. All of her questions and concerns were addressed to the best of my ability. This note is constructed using voice recognition software. While every effort has been made to ensure accuracy, gumming machine operator errors may have been included. Coding Level of Care Code Tele Est Pt Level 3 (42661) Diagnoses Abnormal uterine bleeding (AUB) N93.9 Encounter to discuss test results Z71.2
--- OUTSIDE RECORDS SUMMARY | 2024-08-20 12:14 | XMS_ITS | Encounter Summary ---
Author Organization [email or web address] [facility] Address [address] [place] [address] Care Team Providers Care Munitions Factory Worker Name Role Phone Community, Pcp Primary Care Provider Kelby [place] MD Primary Care Provider Sharda Flores MD Primary Care Provider [phone] Encounter Details Date Type Department Care Team Description 08/20/2016 Release of Information Medical Records [address] [place] [id number] Abstract, Provider Social History Tobacco Use Types Packs/Day Years Used Date Smoking Tobacco: Never Alcohol Use Standard Drinks/Week Comments Yes 0 (1 standard drink = 0.6 oz pur e alcohol) rarely Sex Assigned at Date Recorded Not on file documented as of this encounter Plan of Treatment Not on file documented as of this encounter Visit Diagnoses Not on filedocumented in this encounter Care Teams Munitions Factory Worker Relationship Specialty Start Date End Date Community, Pcp PCP - General Internal Medicine 08/02/16 02/13/19 Kelby Solomon MD PCP - General Internal Medicine 02/14/19 02/23/20 Sharda Feng MD PCP - General Internal Medicine 02/24/20 documented as of this encounter
--- OUTSIDE RECORDS SUMMARY | 2024-08-20 12:14 | XMS_ITS | Encounter Summary ---
Author Organization [facility] Address [address] [place] [address] Care Team Providers Care Jukebox Checker Name Role Phone Sharda Feng MD Primary Care Provider [phone] Encounter Details Date Type Department Care Team Description 05/10/2020 Release of Information Medical Records [address] [place] [address] Abstract, Provider Social History Tobacco Use Types Packs/Day Years Used Date Smoking Tobacco: Never Smokeless Tobacco: Never Alcohol Use Standard Drinks/Week Comments Yes 0 (1 standard drink = 0.6 oz pur e alcohol) rarely Sex Assigned at Date Recorded Not on file COVID-19 Exposure Response Date Recorded In the last month, have you been in contact with someone who was confirmed or suspected to have Coronavirus / COVID-19? No / Unsure 05/05/2020 11:04 AM EST documented as of this encounter Plan of Treatment Not on file documented as of this encounter Visit Diagnoses Not on filedocumented in this encounter Care Teams Jukebox Checker Relationship Specialty Start Date End Date Sharda Feng MD PCP - General Internal Medicine 02/24/20 documented as of this encounter
--- OUTSIDE RECORDS SUMMARY | 2024-08-20 12:14 | XMS_ITS | Clinical Summary ---
Author Organization [facility] Address [address] [place] [address] Care Team Providers Care Kitchen Manager Name Role Phone Sharda Feng MD Primary Care Provider [phone] Surgical History Surgery Date Site/Laterality Comments WISDOM [...] drink = 0.6 oz pur e alcohol) Comments Unknown Sex and Gender Information Value Date Recorded Sex Assigned at Not on file Legal Sex Female 2:18 AM EST Gender Identity Not on file Sexual Orientation Not on file Obstetrics History Plan of Treatment Health Maintenance Due Date Last Done Comments DTaP,Tdap,and Td Vaccines (1 - Tdap) 2014 Hepatitis B Vaccines (1 of 3 - 19+ 3-dose series) 2014 Cervical Cancer Screening: P ap Smear 2016 COVID-19 Vaccine ( - 2023-2 5 season) 2024 Influenza Vaccine (#1) 2024 [...] patient's age to complete this topic Meningococcal B Vacine Aged Out No lo nger eligible based on patient's age to complete [...] age to complete this topic Care Teams Kitchen Manager Relationship Specialty Start Date End Date Sharda Feng MD PCP - General Internal Medicine 02/24/20
--- OUTSIDE RECORDS SUMMARY | 2024-08-20 12:14 | XMS_ITS | Clinical Summary ---
Author Organization [facility] Address [address] [place] [address] Care Team Providers Care First Aid Attendant Name Role Phone Sharda Feng MD Primary Care Provider [phone] Allergies No known active allergies Medications Medication Sig Dispensed Refills Start Date End Date Status ketoconazole (NIZORAL) 2 % cream Apply to the affected and immediate surrounding area once daily for 2-3 weeks 60 g 1 02/27/2020 Active Active Problems Problem Noted Date Asthma 02/06/2020 Obesity (BMI 30.0-34.9) 02/06/2020 Oral herpes 02/06/2020 Seasonal allergies 02/06/2020 Vitamin D deficiency 08/14/2016 Family History Medical History Relation Name Comments Hypertension Father Relation Name Status Comments Father Alive Mother Alive Social History Tobacco Use Types Packs/Day Years Used Date Smoking Tobacco: Never Smokeless Tobacco: Never Alcohol Use Standard Drinks/Week Comments Yes 0 (1 standard drink = 0.6 oz pur e alcohol) rarely Sex Assigned at Date Recorded Not on file Last Filed Vital Signs Vital Sign Reading Time Taken Comments Blood Pressure 101/71 04/22/2020 8:29 AM EDT Pulse 81 04/22/2020 8:29 AM EDT Temperature 36.4 ??C (97.6 ??F) 04/22/2020 8:29 AM ED T Respiratory Rate 12 02/27/2020 10:18 AM EDT Oxygen Saturation - - Inhaled Oxygen Concentration - - Weight 91.6 kg (202 lb) 04/22/2020 8:29 AM EDT Height 162.6 cm (5' 4 ) 04/22/2020 8:29 AM EDT Body Mass Index 34.67 04/22/2020 8:29 AM EDT Plan of Treatment Health Maintenance Due Date Last Done Comments Covid-19 Vaccine (#1) 1995 BASELINE HEALTH EXAM 18-39 2014 DTAP/TDAP/TD (1 - Tdap) 2014 PNEUMOCOCCAL VACCINE FOR HIG H RISK PATIENTS (#1) 2014 CHOLESTEROL SCREENING 2015 CERVICAL CANCER SCREENING 08/11/2019 08/11/2016 INFLUENZA (#1) 2024 BMI CHECK/ADVISE 07/02/2024 02/27/2020, 08/11/2016 DEPRESSION SCREENING/FOLLOWUP 07/02/2024 SOCIAL NEEDS SCREENING 07/02/2024 Care Teams First Aid Attendant Relationship Specialty Start Date End Date Sharda Feng MD PCP - General Internal Medicine 02/24/20
== END 2024-08-20 13:05 | disposition home or self-care (01) ==
LOC: HO.HWS 11:38
PROVIDERS: PCP Nurse Practitioner Family; Visit Provider Advanced Practice Midwife
DX: N93.9 Abnormal uterine and vaginal bleeding, unspecified (principal); Z71.2 Person consulting for explanation of examination or test findings
CPT/HCPCS: 99213

== ENCOUNTER → 2024-08-20 11:38 | Outpatient (BNVA) | payer OTHER, SELFPAY | PROVIDERS: PCP Nurse Practitioner Family; Visit Provider Advanced Practice Midwife ==

== ENCOUNTER 2024-09-04 11:01 | Outpatient (REF) | payer OTHER, SELFPAY ==
--- OUTSIDE RECORDS SUMMARY | 2024-09-04 13:27 | XMS_ITS | Clinical Summary ---
Author Organization [facility] Address [address] [place] [address] Care Team Providers Care Code Inspector Name Role Phone Sharda Feng MD Primary Care Provider [phone] Surgical History Surgery Date Site/Laterality Comments WISDOM [...] age to complete this topic Care Teams Code Inspector Relationship Specialty Start Date End Date Sharda Feng MD PCP - General Internal Medicine 02/24/20
--- OUTSIDE RECORDS SUMMARY | 2024-09-04 13:27 | XMS_ITS | Clinical Summary ---
[facility] Organization [facility] Address [address] [place] [address] Care Team Providers Care Tile Layer Supervisor Name Role Phone Sahrda Feng MD Primary Care Provider [phone] Allergies No known active allergies Medications Medication [...] 07/02/2024 SOCIAL NEEDS SCREENING 07/02/2024 Care Teams Tile Layer Supervisor Relationship Specialty Start Date End Date Sharda Feng MD PCP - General Internal Medicine 02/24/20
--- OUTSIDE RECORDS SUMMARY | 2024-09-04 13:27 | XMS_ITS | Encounter Summary ---
Author Organization [facility] Address [address] [place] [address] Care Team Providers Care Bilingual Speech Therapist Name Role Phone Kelby Solomon MD Primary Care Provider Sharda Flores MD Primary Care Provider [phone] Encounter Details Date Type Department Care Team Description 02/25/2019 Industrial Hygenist Report Medical Records [address] [place] [id number] Cheri Gandhi Social History Tobacco Use Types Packs/Day Years Used Date Smoking Tobacco: Never Alcohol Use Standard Drinks/Week Comments Yes 0 (1 standard drink = 0.6 oz pur e alcohol) rarely Sex Assigned at Date Recorded Not on file documented as of this encounter Plan of Treatment Not on file documented as of this encounter Visit Diagnoses Not on filedocumented in this encounter Care Teams Bilingual Speech Therapist Relationship Specialty Start Date End Date Kelby Solomon MD PCP - General Internal Medicine 02/14/19 02/23/20 Sharda Feng MD PCP - General Internal Medicine 02/24/20 documented as of this encounter
--- OUTSIDE RECORDS SUMMARY | 2024-09-04 13:27 | XMS_ITS | Encounter Summary ---
Author Organization [facility] Address [address] [place] [address] Care Team Providers Care Oracle Specialist Name Role Phone Sharda Feng MD Primary Care Provider [phone] Encounter Details Date Type Department Care Team Description 03/09/2020 Hospital Medical Records [address] [place] [address] Arelis Grimm MD [address] [place] [id number] Social History Tobacco Use Types Packs/Day Years [...] on filedocumented in this encounter Care Teams Oracle Specialist Relationship Specialty Start Date End Date Sharda Feng MD PCP - General Internal Medicine 02/24/20 documented as of this encounter
--- OUTSIDE RECORDS SUMMARY | 2024-09-04 13:27 | XMS_ITS | Encounter Summary ---
Author Organization [facility] Address [address] [place] [address] Care Team Providers Care Hat Cleaner Name Role Phone Sharda Feng MD Primary Care Provider [phone] Encounter Details Date Type Department Care Team Description 05/10/2020 Release of Information Medical Records [address] [place] [address] Abstract, Provider Social History Tobacco Use Types [...] on filedocumented in this encounter Care Teams Hat Cleaner Relationship Specialty Start Date End Date Sharda Feng MD PCP - General Internal Medicine 02/24/20 documented as of this encounter
[2024-09-05 21:03] LABS: Immunoglobulin E 762 kU/L (<OR=114)
== END 2024-09-04 11:02 | disposition home or self-care (01) ==
LOC: HO.10HDL 11:01
PROVIDERS: Visit Provider Otolaryngology
DX: J30.89 Other allergic rhinitis (principal)
CPT/HCPCS: 36415; 82785; 86003

== ENCOUNTER 2025-01-21 12:05 | Outpatient (REF) | payer OTHER, SELFPAY | END 2025-01-21 12:06 | disposition home or self-care (01) | LOC: HO.LAB 12:05 | PROVIDERS: PCP Nurse Practitioner Family; Visit Provider Nurse Practitioner Family | DX: R30.0 Dysuria (principal); E66.9 Obesity, unspecified; E28.2 Polycystic ovarian syndrome; Z68.35 Body mass index [BMI] 35.0-35.9, adult; Z71.3 Dietary counseling and surveillance | CPT/HCPCS: 87086; 96127 ==

== ENCOUNTER 2025-01-21 12:05 | Outpatient (AMB) | payer OTHER, SELFPAY ==
--- NOTE | 2025-01-21 12:06 | A.OFFPC_ITS ---
Vital Signs 01/21/25 12:12 Height 5 ft 4 in Weight 206 lb BMI 35.4 BP 122/68 Blood Pressure Location Lt brachial Position Sitting Respiration 12 Pulse 68 Pulse Source Pulse Oximeter Temp 97.5 F Temp Source Oral Pulse Oximetry (%) 99 Oxygen Delivery Method Room Air Intake Visit Reasons: UTI, pt of MT Intake Note: Patient c/o frequent urination, burning when urinating and back discomfort started today Chief Payroll Clerk Required: No Allergies peach Allergy (Unknown, Verified 01/21/25 12:22) Unknown carrot Adverse Reaction (Intermediate, Verified 01/21/25 12:22) Itching Jackfruit Adverse Reaction (Intermediate, Uncoded 01/21/25 12:07) Anaphylaxis Sugarsnap Peas Adverse Reaction (Intermediate, Uncoded 01/21/25 12:07) Itching Medication List - Last Reconciled 01/21/25 by HEBER Hernández-FRANCISCO lysine 975 mg PO DAILY Tobacco use date assessed: 01/21/25 Dental Screening Dental Screen Date: 01/21/25 Did you have a dental visit in the last 12 months?: Yes Did you have a dental problem in the last 6 months where you did not have access to dental care?: No Was dental information given to patient?: Patient has dentist HPI HPI Comments History of Present Illness Details History of Present Illness - The patient is a 29-year-old female wi th obesity and PCOS presenting with frequent urination and burning upon urination. - Symptoms began on the day of the visit . - Left lower back pain presents without fever, chills, nausea, or vomiting. - Previous UTI episode approximately two years ago. - Currently finishing menstrual period; has PCOS. - Denies blood in urine, vaginal dischar ge, itching, and concerns for STDs. - No history of kidney stones. Review of Systems - Urinary: Reports frequent urination an d burning upon urination. - Back: Reports lower back pain on the l eft side. - Constitutional: Denies fever and chill s. - Gastrointestinal: Denies nausea or vom iting. - Genitourinary: Denies blood in urine, denies vaginal discharge or itching. - Reproductive: Currently on the last da y of menstrual cycle due to PCOS. - Infectious: Denies concerns for sexual ly transmitted diseases. Physical Exam General: Well developed, well nourished, in no acute distress. Appears stated age. Head: Normocephalic, atraumatic. MM moist Heart: Regular rate and rhythm. No murmurs, click, rubs or gallops are noted. Abdomen: The abdomen is soft, nontender, No pain or pressure noted upon palpation over the bladder. No CVAT bilat Psych: Mood and affect appropriate Diagnostic results See UA dip below negative. Discussion Notes A discussion was held regarding the patient's likely diagnosis of a urinary tract infection. I explained the importance of obtaining a urine sample for immediate dipstick testing and subsequent culture to guide appropriate antibiotic therapy. The patient was informed that empirical antibiotic treatment might commence if the dipstick test results are suggestive of a UTI, without waiting for culture results, to alleviate symptoms swiftly. We discussed the absence of red flag symptoms such as fever, significant back pain, or hematuria, reducing concern for complications such as pyelonephritis or kidney stones. I advised the patient to provide a urine sample before leaving the clinic, ensuring immediate results. Instructions were given on how to return to room 1 after restroom use. Return precautions were also discussed to include follow-up should symptoms persist or worsen despite treatment. Assessment and Plan 1. Urinary Tract Infection (UTI) UA dip negative Send for culture and tx as appropriate Results to be sent to the portal If negative will need to review other causes for her sx. Patient Instructions - Watch for any worsening symptoms or ne w symptoms like fever or back pain. - Follow-up if symptoms don't improve wi th treatment. Consent Patient was informed and verbally consented to the use of an ambient scribe for clinic note documentation during this visit. Total time spent caring for the patient today was 30 minutes. This includes time spent before the visit reviewing the chart, time spent during the visit, and time spent after the visit on documentation, reviewing laboratory results, diagnostic imaging, medications, performing a medically necessary evaluation, counseling on diagnoses, care coordination, ordering appropriate tests, ordering appropriate medications, review of tests performed by other providers, reporting test results with the patient, communication with other healthcare providers. [facility] Medical History (Updated 01/21/25 @ 12:25 by Sadia Parra, [facility]) Complex ovarian cyst Fibroadenoma of breast Heavy menstrual bleeding Lipoma of back Migraine Obesity PCOS (polycystic ovarian syndrome) Surgical History No pertinent past surgical history Family History (Updated 05/22/24 @ 13:08 by Silvia Waters LPN) Maternal Aunt History of breast cancer Mother Liver disease Brother NAFLD (nonalcoholic fatty liver disease) Social History Housing: Apartment Alcohol intake: current Alcohol intake frequency: a few times a month Patient Tobacco Use Status: Never used Tobacco e-Cigarette/Vaping Use: Never Used Second Hand Smoke Exposure: No service: No Current occupational status: employed 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 1. Little interest or pleasure in doing things: not at all 2. Feeling down, depressed, or hopeless: not at all 3. Trouble falling or staying asleep, or sleeping too much: not at all 4. Feeling tired or having little energy: several days 5. Poor appetite or overeating: not at all 6. Feeling bad about yourself - or that you are a failure or have let yourself or your family down: several days 7. Trouble concentrating on things, such as reading the newspaper or watching television: not at all 8. Moving or speaking so slowly that other people could have noticed. Or the opposite - being so fidgety or restless that you have been moving around a lot more than usual: not at all 9. Thoughts that you would be better off or of hurting yourself in some way: not at all Total score: 2 Depression Screening Interpretation: Negative Depression Screening Done: Yes 74527 - PHQ-9 Billing: Yes Source: Developed by Drs. Anthony Sylvester, Megan Marie, Emmanuel Nash and colleagues, with an educational oneida from [employer]. Thrive Questionnaire Date Thrive assessed: 01/21/25 I am a: Patient What is your living situation today?: I have a steady place to live Within the past 12 months, did the food you bought not last and you didn't have the money to get more?: Sometimes True Within the past 12 months, did you worry whether your food would run out before you got money to buy more?: Sometimes True Do you have trouble paying for medicines?: Yes Do you have trouble getting transportation to medical appointments?: No Do you have trouble paying your heating and electricity bill?: Yes Do you have trouble taking care of your child, family member or friend?: No Do you have trouble with day-to-day activities such as bathing, preparing meals, shopping, managing finances, etc.?: No Are you currently unemployed and looking for a job?: No Are you interested in more education?: No Please select the resources that you would like help with: None Currently or been in a relationship where the following occur: No concerns reported THRIVE Score: 3 AUDIT C Alcohol Use Questionnaire (AUDIT-C) 1. How often do you have a drink containing alcohol?: 2-3 times a week 2. How many drinks containing alcohol do you have on a typical day when you are drinking?: 3 or 4 3. How often do you have six or more drinks on one occasion?: Less than monthly Total Score: 5 SARAI-7 AMB Questionnaire SARAI-7 Date SARAI - 7 assessed: 01/21/25 Feeling nervous, anxious, or on edge: 0 = Not at all Not being able to stop or control worryin = Not at all Worrying too much about different things: 1 = Several days Trouble relaxin = Not at all Being so restless that it is hard to sit still: 0 = Not at all Becoming easily annoyed or irritable: 0 = Not at all Feeling afraid as if something awful might happen: 0 = Not at all Total SARAI-7 score (0-4 normal; 5-9 mild; 10-14 moderate; 15-21 severe): 1 Source: Developed by Drs. Anthony Sylvester, Megan Marie, Emmanuel Nash and colleagues, with an educational oneida from [employer]. SARAI-7 Assessment Billing SARAI-7 Assessment Tool: SARAI-7 Assessment 15477 Physical exam (Primary Care) Vital Signs: Last Vital Signs Temp 97.5 F 01/21/25 12:12 Pulse 68 01/21/25 12:12 Resp 12 01/21/25 12:12 BP 122/68 01/21/25 12:12 Pulse Ox 99 01/21/25 12:12 Oxygen Delivery Method Room Air 01/21/25 12:12 BMI result Body Mass Index 35.4 BMI Assessment/Plan discussion: High BMI High, discussed plan: lifestyle Tobacco/Smoking Status: Tobacco use Status Tobacco use date assessed 01/21/25 01/21/25 12:10 Patient Tobacco Use Status Never used Tobacco 01/21/25 12:10 e-Cigarette/Vaping Use Never Used 01/21/25 12:10 PHQ-9: PHQ-9 Score PHQ-9: Total score 2 01/21/25 12:10 Depression Screening Interpretation: Negative Thrive Assessment: Date of Thrive Assessment Date Thrive assessed 01/21/25 01/21/25 12:10 Currently or been in a relationship where the following occur: No concerns reported Results AMB Urinalysis, Automated UA Leukoctes 0 Yvonne/uL Last Edit by Mary Layne MA on 01/21/25 12:37 UA Nitrite Negative Last Edit by Mary Layne MA on 01/21/25 12:37 UA Urobilinogen 3.5 mg/dL Last Edit by Mary Layne MA on 01/21/25 12:37 UA Protein 0 mg/dL Last Edit by Mary Layne MA on 01/21/25 12:37 UA pH 7.0 Last Edit by Mary Layne MA on 01/21/25 12:37 UA Blood 0 Abdiaziz/uL Last Edit by Mary Layne MA on 01/21/25 12:37 UA Specific [place] 1.005 Last Edit by Mary Layne MA on 01/21/25 12:3 7 UA Ketone Negative Last Edit by Mary Layne MA on 01/21/25 12:37 UA Bilirubin 0 mg/dL Last Edit by Mary Layne MA on 01/21/25 12:37 UA Glucose 0 mg/dL Last Edit by Mary Layne MA on 01/21/25 12:37 Coding Level of Care Code Est Pt Level 4 (62264) Complex EM visit Add On G2211 Diagnoses Dysuria R30.0 Obesity (BMI 30-39.9) E66.9 PCOS (polycystic ovarian syndrome) E28.2 Additional Codes SARAI-7 Assessment Billing - SARAI-7 Assessment Tool: SARAI-7 Assessment 80836 ([id number]) PHQ-9 - 72527 - PHQ-9 Billing: Yes ([id number]) Assessment & Plan Assessment & Plan (1) Dysuria: Code(s): R30.0 - Dysuria Category: Medical (2) Obesity (BMI 30-39.9): Code(s): E66.9 - Obesity, unspecified Category: Medical (3) PCOS (polycystic ovarian syndrome): Code(s): E28.2 - Polycystic ovarian syndrome Category: Medical Plan . Orders: Orders Urine Culture Today R30.0 - Dysuria AMB Urinalysis Automated Today Z13.9 - Encounter for screening, unspecified
[2025-01-21 12:12] VITALS: BP 122/68; PULSE 68; RESP 12; TEMP 36.4; O2SAT 99; BMI 35.4
--- OUTSIDE RECORDS SUMMARY | 2025-01-21 12:44 | XMS_ITS | Clinical Summary ---
[facility] Organization [facility] Address [address] [place] [address] Care Team Providers Care Twist Packer Name Role Phone Sharda Feng MD Primary Care Provider [phone] Surgical History Surgery Date Site/Laterality Comments WISDOM [...] Screening: P ap Smear 2016 COVID-19 Vaccine (1 - 2023-2 5 season) 2024 Depression Screening 07/02/2024 Influenza Vaccine (#1) 2025 HIB Vaccines Aged Out No longer eligi [...] age to complete this topic Meningococcal B Vaccine Aged Out No l onger eligible based on patient's age to complete this topic Pneumococcal Vaccine: Pediat rics (0 to 5 Years) and At-Risk Patients (6 to 49 Years) Aged Out No longer eligible b ased on patient's age to complete this topic RSV Immunization Patients Un koko 20 months Aged Out No longer eligible b ased on patient's age to complete this topic Varicella Vaccines Aged Out No longer eligible based on patient's age to complete this topic Care Teams Twist Packer Relationship Specialty Start Date End Date Sharda Feng MD PCP - General Internal Medicine 02/24/20
== END 2025-01-21 12:40 | disposition home or self-care (01) ==
LOC: HO.HMCFM 12:06
PROVIDERS: PCP Nurse Practitioner Family; Visit Provider Nurse Practitioner Family
DX: R30.0 Dysuria (principal); E66.9 Obesity, unspecified; E28.2 Polycystic ovarian syndrome; Z68.35 Body mass index [BMI] 35.0-35.9, adult

== ENCOUNTER 2025-02-03 14:51 | Outpatient (AMB) | payer OTHER, SELFPAY ==
--- NOTE | 2025-02-03 14:54 | A.OFFPC_ITS ---
Vital Signs 02/03/25 14:58 Height 5 ft 4 in Weight 197 lb 6 oz BMI 33.9 BP 118/70 Blood Pressure Location Lt brachial Position Sitting Respiration 14 Pulse 74 Pulse Source Pulse Oximeter Temp 97.7 F Temp Source Temporal Artery Scan Pulse Oximetry (%) 100 Oxygen Delivery Method Room Air Intake Visit Reasons: Extremely soft stool Intake Note: Debra presents in the office for issues with extremely soft stool. Allergies peach Allergy (Unknown, Verified 02/03/25 14:59) Unknown carrot Adverse Reaction (Intermediate, Verified 02/03/25 14:59) Itching Jackfruit Adverse Reaction (Intermediate, Uncoded 02/03/25 14:59) Anaphylaxis Sugarsnap Peas Adverse Reaction (Intermediate, Uncoded 02/03/25 14:59) Itching Tobacco use date assessed: 02/03/25 Dental Screening Dental Screen Date: 02/03/25 Did you have a dental visit in the last 12 months?: No Did you have a dental problem in the last 6 months where you did not have access to dental care?: No Was dental information given to patient?: No HPI HPI Comments History of Present Illness Details 29-year-old female presents with complai nts of persistent watery stool, abdominal (from her left flank to mid abdomen), and nausea for the past 1 week. She vomited once yesterday. She notes that the stomach pain is now less severe after she started brat diet. She describes the pain in her abdomen as ripping apart. She denies bloody stool or vomit. She denies urinary symptoms. She denies contacts. She notes that there is no chance she is currently . Her last menstrual cycle was in the middle of last month. FORMERLY [facility], [facility] Medical History (Updated 02/03/25 @ 15:22 by Alma Dalton CNP) Complex ovarian cyst Heavy menstrual bleeding Fibroadenoma of breast Obesity PCOS (polycystic ovarian syndrome) Migraine Lipoma of back Surgical History No pertinent past surgical history Family History Maternal Aunt History of breast cancer Mother Liver disease Brother NAFLD (nonalcoholic fatty liver disease) Maternal Aunt FHx: mental illness Social History (Updated 02/03/25 @ 14:58 by Diandra Euceda MA) Housing: Apartment Alcohol intake: current Alcohol intake frequency: a few times a month Patient Tobacco Use Status: Never used Tobacco e-Cigarette/Vaping Use: Never Used Second Hand Smoke Exposure: No Use of substances other than those prescribed or required for medical reasons: Yes Substance Use Type: Marijuana service: No Current occupational status: employed 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 Current occupational exposures/hazards: No Sexual orientation: Lesbian/[place]/Homosexual Cognitive needs: No Hearing needs: No Vision needs: No Female Reproductive History Menstrual Age of Menarche: 14 Questionnaire Thrive Questionnaire Date Thrive assessed: 01/21/25 I am a: Patient What is your living situation today?: I have a steady place to live Within the past 12 months, did the food you bought not last and you didn't have the money to get more?: Sometimes True Within the past 12 months, did you worry whether your food would run out before you got money to buy more?: Sometimes True Do you have trouble paying for medicines?: Yes Do you have trouble getting transportation to medical appointments?: No Do you have trouble paying your heating and electricity bill?: Yes Do you have trouble taking care of your child, family member or friend?: No Do you have trouble with day-to-day activities such as bathing, preparing meals, shopping, managing finances, etc.?: No Are you currently unemployed and looking for a job?: No Are you interested in more education?: No Please select the resources that you would like help with: None Currently or been in a relationship where the following occur: No concerns reported THRIVE Score: 3 SARAI-7 AMB Questionnaire SARAI-7 Date SARAI - 7 assessed: 01/21/25 Source: Developed by Drs. Anthony Sylvester, Megan Marie, Emmanuel Nash and colleagues, with an educational oneida from [employer]. Review of Systems Const Details: Const Denies chills, Denies fatigue, Denies fever(s), Denies headache(s) and Denies weakness ENT Denies dizziness and Denies headache(s) Card Denies chest pain, Denies lightheadedness, Denies dyspnea and Denies other (Palpitations) Resp Denies cough, Denies dyspnea, Denies wheezing and Denies other ( shortness of breath) GI Reports as per HPI Denies hematuria and Denies dysuria Musc Denies abnormal gait, Denies myalgias, Denies arthralgias, Denies numbness and Denies tingling Skin/Breast Denies rash, Denies unusual bruising and Denies wounds Neuro Denies abnormal gait, Denies dizziness, Denies headache(s), Denies memory loss, Denies numbness, Denies Sensory deficit (Neuro), Denies tingling and Denies weakness Psych Denies anxiety, Denies depression, Denies memory loss Endo Denies cold intolerance, Denies fatigue, Denies heat intolerance, Denies polydipsia and Denies polyuria Aller/Immun Denies wheezing Physical exam (Primary Care) Tobacco/Smoking Status: Tobacco use Status Tobacco use date assessed 01/21/25 02/03/25 14:56 Patient Tobacco Use Status Never used Tobacco 02/03/25 14:58 e-Cigarette/Vaping Use Never Used 02/03/25 14:58 Thrive Assessment: Date of Thrive Assessment Date Thrive assessed 01/21/25 02/03/25 14:56 Currently or been in a relationship where the following occur: No concerns reported Const Other: General: no acute distress and well developed Nutritional Appearance: well nourished Orientation/consciousness: patient oriented x3 HENMT Head: Yes normocephalic and Yes atraumatic Eyes General: appearance normal, both eyes and all related structures Pupils: Equal, round and reactive pupils present EOM: EOMs intact bilaterally Resp Effort & Inspection: normal respiratory effort Auscultation: clear to auscultation bilaterally Cardio Rate: regular rate Rhythm: regular rhythm Heart sounds: S1 normal heart sound present, S2 normal heart sound present, no gallops, no murmurs and no rubs GI Palpation (GI): No Abdominal aortic bruit present, Soft to palpation, tender epigastric refion and right upper quadrant, No hepatosplenomegaly present and No Rebound tenderness present Auscultation: normal bowel sounds General: Yes no CVA tenderness Back/Spine/Pelvis Back: no CVA tenderness Cervical Spine: cervical ROM normal and No Cervical spine tenderness Thoracic/Lumbar Spine: thoraco-lumbar ROM normal, No pain with thoraco-lumbar ROM, No thoracic spinal tenderness and No lumbar spinal tenderness Extrem General: Yes normal to inspection, No edema and No calf tenderness Skin General: warm and dry. Normal skin color. Normal skin turgor Neuro General: patient oriented x3, gait normal and no focal neuro deficit Cranial nerves: Yes Equal, round and reactive pupils present Cognition (Neuro): normal cognition Gait exam (Neuro): Normal gait present Sensory Exam: No Sensory deficit (Neuro) Psych Appearance: grossly normal Affect: normal affect Attitude: cooperative Thought process: Normal thought process present Coding Level of Care Code Est Pt Level 4 (47104) Diagnoses Abdominal pain R10.9 Diarrhea R19.7 Assessment & Plan Assessment & Plan (1) Abdominal pain: Code(s): R10.9 - Unspecified abdominal pain Category: Medical Plan: Abdominal tenderness to epigastric and right upper quadrant. Likely gastroenteritis gastritis. Will defer imaging for now since she has improved. Will trial omeprazole 20 mg daily; advised to take as prescribed. Healthy diet encouraged. Advised to avoid fatty or greasy foods. Soluble foods encouraged for watery stools. May take Metamucil was a twice daily. Advised to schedule an extended physical exam. Follow-up with worsening or new symptoms. Verbalized understanding and agreed with the plan. (2) Diarrhea: Code(s): R19.7 - Diarrhea, unspecified Category: Medical Plan: Plan as above. Medications: New omeprazole 20 mg PO DAILY 30 caps 0RF 30 days
[2025-02-03 14:58] VITALS: BP 118/70; PULSE 74; RESP 14; TEMP 36.5; O2SAT 100; BMI 33.9
--- OUTSIDE RECORDS SUMMARY | 2025-02-03 15:24 | XMS_ITS | Clinical Summary ---
Author Organization [facility] Address [address] [place] [address] Care Team Providers Care Information Receptionist Name Role Phone Sharda Feng MD Primary Care Provider [phone] Surgical History Surgery Date Site/Laterality Comments WISDOM [...] age to complete this topic Care Teams Information Receptionist Relationship Specialty Start Date End Date Sharda Feng MD PCP - General Internal Medicine 02/24/20
== END 2025-02-03 15:41 | disposition home or self-care (01) ==
LOC: HO.HMCFM 14:52
PROVIDERS: PCP Nurse Practitioner Family; Visit Provider Nurse Practitioner Family
DX: R10.9 Unspecified abdominal pain (principal); R19.7 Diarrhea, unspecified